=== PATIENT | male | born 1960 | race Caucasian/White ===

== ENCOUNTER 2017-09-25 13:52 | Observation (INO) ==
[2017-09-25 14:25] LABS: Bilirubin,Urine Negative (Negative); Blood,Urine Negative (Negative); Clarity,Urine Clear (Clear); Color,Urine Yellow (Yellow); Glucose,Urine (UA) Normal (Normal); Ketones,Urine Negative (Negative); Leukocyte Esterase,Urine Negative (Negative); Nitrite,Urine Negative (Negative); PH,Urine 6.5 pH Units (5.0-8.0); Protein,Urine Negative (Neg-Trace); Specific Gravity,Urine 1.013 (1.010-1.025); Urobilinogen,Urine Normal (Normal)
--- NOTE | 2017-09-25 14:29 | Emergency Department Note ---
Disposition Clinical Impression: CHF (congestive heart failure) Disposition: Admitted As Inpatient Condition: Good Referrals: NONE,PCP [Primary Care Provider] - Forms: ED Satisfaction Letter, Work/School Release Time of Disposition: 17:03 General Adult HPI - General Chief complaint: ED General Medical Stated complaint: Leg swelling Time Seen by Provider: 09/25/17 14:04 Source: patient Mode of arrival: ambulatory Limitations: no limitations Nursing Notes Reviewed: Yes Vital Signs Reviewed: Yes - History of Present Illness HPI Narrative: Patient presents to the ED with a 3 week, but worse within the last week history of bilateral lower extremities with left greater than right swelling, orthopnea, exertional dyspnea. Denies chest pain. Also complaining of abdominal distention, pain, nausea or vomiting. No melena, hematochezia, hematemesis. Nonproductive cough. No previous history of CHF. States he has gained about 20 pounds in the last few weeks. Previous history of DVT, PE or malignancy. Pain Scale: 6 - Related Data Home Medications Medication Instructions Recorded Confirmed Amitriptyline HCl 04/19/17 Diazepam 04/19/17 Hydrochlorothiazide 04/19/17 Lotrel 5-20 mg Capsule 04/19/17 Oxycodone HCl 04/19/17 Previous Rx's Medication Instructions Recorded Peg 3350/Na Sulf,Bicarb,Cl/KCl 4,000 ml PO ONCE #1 / 08/26/16 [Golytely Solution] Simethicone [Gas-X] 80 mg PO TID #20 tab.chew 08/26/16 Azelastine 0.1% Nasal [place] 1 spray IN BID #30 mls 04/19/17 [Astelin] Cephalexin [Keflex] 1 g PO BID #40 capsule 04/19/17 Sulfamethoxazole/Trimeth DS 1 each PO BID #20 tablet 07/05/17 [Bactrim DS] Allergies Allergy/AdvReac Type Severity Reaction Status Date / Time Tetracyclines Allergy Hives Verified 08/25/16 21:52 All systems ED: reviewed and negative except as stated. Constitutional: Denies: fever Eyes: Denies: vision change Cardiovascular: Reports: dyspnea on exertion, orthopnea, edema, paroxysmal nocturnal dyspnea. Denies: chest pain, syncope Respiratory: Reports: cough, dyspnea. Denies: sputum production Gastrointestinal: Reports: abdominal pain, nausea. Denies: vomiting Musculoskeletal: Denies: back pain Integumentary: Denies: rash Past Medical History - Past Medical History Attestation: Yes The following information was validated with the patient. Source: patient Medical history: Reports: fibromyalgia, glaucoma, hypertension, other Surgical history: Reports: appendectomy, other (T&A; Right eye: ran tree root into eye) Psychiatric history: Reports: anxiety - Social History Smoking Status: Former smoker Smokeless Tobacco Status: No Alcohol use: Reports: none Drug use: Reports: none Physical Exam - General Limitations: no limitations General appearance: alert, in no apparent distress - Head Head exam: atraumatic, normocephalic, normal inspection - Eye Eye exam: Present: normal appearance, PERRL, EOMI - ENT ENT exam: normal exam, normal oropharynx, mucous membranes moist - Neck Neck exam: Present: normal inspection, full ROM, trachea midline - Chest Chest inspection: Present: normal inspection, symmetric chest wall rise - Respiratory Respiratory exam: Present: other (Trace rales bilateral bases). Absent: normal lung sounds bilaterally, accessory muscle use - Cardiovascular Cardiovascular exam: Present: regular rate, normal rhythm, normal heart sounds - Abdominal Exam Abdominal exam: Present: soft, distention, other (Patient does have an area of ecchymosis above his umbilicus. No crepitus, denies injury or injection). Absent: guarding, rebound Abdominal tenderness: Present: diffuse, mild - Extremities Exam Extremities exam: Present: pedal edema (2-3+ pitting edema with left greater than right) - Neurological Exam Neurological exam: Present: alert, oriented X3 - Psychiatric Psychiatric exam: Present: normal affect, normal mood - Skin Skin exam: Present: warm, dry, intact, normal color Course Course Narrative: Patient presenting with likely new onset CHF. We will get labs and likely admit - Reevaluation(s) Reevaluation #1: Patient had some pulmonary vascular congestion, but no PE. We will admit for CHF. Patient family agreeable. We will also give Lasix. Vital Signs Temperature 98.2 F 09/25/17 13:57 Pulse Rate 66 09/25/17 13:57 Respiratory Rate 16 09/25/17 13:57 Blood Pressure 135/84 09/25/17 13:57 O2 Sat by Pulse Oximetry 96 09/25/17 13:57 Temperature 98.2 F 09/25/17 13:57 Pulse Rate 62 09/25/17 16:35 Respiratory Rate 20 09/25/17 16:35 Blood Pressure 145/99 09/25/17 16:35 O2 Sat by Pulse Oximetry 100 09/25/17 16:35 Oxygen Delivery Oxygen Delivery Room Air Medical Decision Making - Medical Records Medical records reviewed: Yes I reviewed the patient's medical records. - Lab Data Lab results reviewed: Yes I reviewed the patient's lab results. Result diagrams: 09/25/17 14:20 09/25/17 14:20 Lab Results 09/25/17 09/25/17 09/25/17 Range/Units 14:16 14:20 14:20 WBC 5.0 (4.3-11.1) K/mcL RBC 3.88 L (4.19-5.50) M/mcL Hgb 13.6 (12.9-16.9) g/dL Hct 39.9 (37.5-50.1) % MCV 102.8 H (83.0-100.0) fL MCH 35.1 H (28.0-33.3) pg MCHC 34.1 (31.6-35.5) g/dL RDW 13.3 (11.5-14.5) % Plt Count 235 (140-400) K/mcL MPV 9.6 (9.4-12.4) fL Immature Gran % 0.4 (0-4) % Seg Neutrophils % 49.3 % Lymphocytes % 39.3 % Monocytes % 9.0 % Eosinophils % 1.6 % Basophils % 0.4 % Neutrophils # 2.5 (1.6-8.9) K/mcL Lymphocytes # 2.0 (0.6-4.6) K/mcL Monocytes # 0.5 (0.0-1.3) K/mcL Eosinophils # 0.1 (0.0-0.6) K/mcL Basophils # 0.0 (0.0-0.2) K/mcL PT (9.4-12.1) Seconds INR APTT (26.0-36.0) Seconds Sodium 139 (136-145) mEq/L Potassium 4.1 (3.5-4.5) mEq/L Chloride 105 (98-109) mEq/L Carbon Dioxide 26 (19-29) mEq/L BUN 17 (8-26) mg/dL Creatinine 0.93 (0.72-1.25) mg/dL Est GFR ( Amer) > 60 (> 60) Est GFR (Non-Af Amer) > 60 (> 60) BUN/Creatinine Ratio 18 (6-26) Glucose 101 H (70-99) mg/dL Calculated Osmolality 290 (280-300) Lactic Acid (0.5-2.2) mmol/L Calcium 9.5 (8.6-10.8) mg/dL Total Bilirubin 0.4 (0.2-1.2) mg/dL Direct Bilirubin 0.2 (0.0-0.5) mg/dL Indirect Bilirubin 0.2 (0.0-1.2) mg/dL AST 29 (5-34) Units/L ALT 33 (0-55) Units/L Alkaline Phosphatase 91 (38-126) Units/L Troponin I (0-0.03) ng/mL B-Natriuretic Peptide (0-100) pg/mL Serum Total Protein 7.5 (6.0-8.3) g/dL Albumin 3.7 (3.5-5.0) g/dL Globulin 3.8 H (2.4-3.5) g/dL Albumin/Globulin Ratio 1.0 L (1.1-2.2) Lipase < 10 (8-78) Units/L Urine Color Yellow (Yellow) Urine Clarity Clear (Clear) Urine pH 6.5 (5.0-8.0) pH Units Ur Specific [place] 1.013 (1.010-1.025) Urine Protein Negative (Neg-Trace) mg/dL Urine Glucose (UA) Normal (Normal) mg/dL Urine Ketones Negative (Negative) mg/dL Urine Blood Negative (Negative) Urine Nitrite Negative (Negative) Urine Bilirubin Negative (Negative) Urine Urobilinogen Normal (Normal) mg/dL Ur Leukocyte Esterase Negative (Negative) Ur Culture Indicated? NO (NO) 09/25/17 09/25/17 09/25/17 Range/Units 14:20 14:20 14:20 WBC (4.3-11.1) K/mcL RBC (4.19-5.50) M/mcL Hgb (12.9-16.9) g/dL Hct (37.5-50.1) % MCV (83.0-100.0) fL MCH (28.0-33.3) pg MCHC (31.6-35.5) g/dL RDW (11.5-14.5) % Plt Count (140-400) K/mcL MPV (9.4-12.4) fL Immature Gran % (0-4) % Seg Neutrophils % % Lymphocytes % % Monocytes % % Eosinophils % % Basophils % % Neutrophils # (1.6-8.9) K/mcL Lymphocytes # (0.6-4.6) K/mcL Monocytes # (0.0-1.3) K/mcL Eosinophils # (0.0-0.6) K/mcL Basophils # (0.0-0.2) K/mcL PT (9.4-12.1) Seconds INR APTT (26.0-36.0) Seconds Sodium (136-145) mEq/L Potassium (3.5-4.5) mEq/L Chloride (98-109) mEq/L Carbon Dioxide (19-29) mEq/L BUN (8-26) mg/dL Creatinine (0.72-1.25) mg/dL Est GFR ( Amer) (> 60) Est GFR (Non-Af Amer) (> 60) BUN/Creatinine Ratio (6-26) Glucose (70-99) mg/dL Calculated Osmolality (280-300) Lactic Acid 1.1 (0.5-2.2) mmol/L Calcium (8.6-10.8) mg/dL Total Bilirubin (0.2-1.2) mg/dL Direct Bilirubin (0.0-0.5) mg/dL Indirect Bilirubin (0.0-1.2) mg/dL AST (5-34) Units/L ALT (0-55) Units/L Alkaline Phosphatase (38-126) Units/L Troponin I 0.00 (0-0.03) ng/mL B-Natriuretic Peptide 123 H (0-100) pg/mL Serum Total Protein (6.0-8.3) g/dL Albumin (3.5-5.0) g/dL Globulin (2.4-3.5) g/dL Albumin/Globulin Ratio (1.1-2.2) Lipase (8-78) Units/L Urine Color (Yellow) Urine Clarity (Clear) Urine pH (5.0-8.0) pH Units Ur Specific [place] (1.010-1.025) Urine Protein (Neg-Trace) mg/dL Urine Glucose (UA) (Normal) mg/dL Urine Ketones (Negative) mg/dL Urine Blood (Negative) Urine Nitrite (Negative) Urine Bilirubin (Negative) Urine Urobilinogen (Normal) mg/dL Ur Leukocyte Esterase (Negative) Ur Culture Indicated? (NO) 09/25/17 Range/Units 14:20 WBC (4.3-11.1) K/mcL RBC (4.19-5.50) M/mcL Hgb (12.9-16.9) g/dL Hct (37.5-50.1) % MCV (83.0-100.0) fL MCH (28.0-33.3) pg MCHC (31.6-35.5) g/dL RDW (11.5-14.5) % Plt Count (140-400) K/mcL MPV (9.4-12.4) fL Immature Gran % (0-4) % Seg Neutrophils % % Lymphocytes % % Monocytes % % Eosinophils % % Basophils % % Neutrophils # (1.6-8.9) K/mcL Lymphocytes # (0.6-4.6) K/mcL Monocytes # (0.0-1.3) K/mcL Eosinophils # (0.0-0.6) K/mcL Basophils # (0.0-0.2) K/mcL PT 10.1 (9.4-12.1) Seconds INR 0.9 APTT 31.6 (26.0-36.0) Seconds Sodium (136-145) mEq/L Potassium (3.5-4.5) mEq/L Chloride (98-109) mEq/L Carbon Dioxide (19-29) mEq/L BUN (8-26) mg/dL Creatinine (0.72-1.25) mg/dL Est GFR ( Amer) (> 60) Est GFR (Non-Af Amer) (> 60) BUN/Creatinine Ratio (6-26) Glucose (70-99) mg/dL Calculated Osmolality (280-300) Lactic Acid (0.5-2.2) mmol/L Calcium (8.6-10.8) mg/dL Total Bilirubin (0.2-1.2) mg/dL Direct Bilirubin (0.0-0.5) mg/dL Indirect Bilirubin (0.0-1.2) mg/dL AST (5-34) Units/L ALT (0-55) Units/L Alkaline Phosphatase (38-126) Units/L Troponin I (0-0.03) ng/mL B-Natriuretic Peptide (0-100) pg/mL Serum Total Protein (6.0-8.3) g/dL Albumin (3.5-5.0) g/dL Globulin (2.4-3.5) g/dL Albumin/Globulin Ratio (1.1-2.2) Lipase (8-78) Units/L Urine Color (Yellow) Urine Clarity (Clear) Urine pH (5.0-8.0) pH Units Ur Specific [place] (1.010-1.025) Urine Protein (Neg-Trace) mg/dL Urine Glucose (UA) (Normal) mg/dL Urine Ketones (Negative) mg/dL Urine Blood (Negative) Urine Nitrite (Negative) Urine Bilirubin (Negative) Urine Urobilinogen (Normal) mg/dL Ur Leukocyte Esterase (Negative) Ur Culture Indicated? (NO) - Radiology Data Radiology results reviewed: Yes I reviewed the patient's radiology results. - EKG Data EKG #1 EKG attestation: Yes I reviewed and interpreted this EKG. EKG results narrative: Sinus rhythm, rate 64, para 156, QRS 104, QTC 381, left axis deviation, no acute ischemic changes.
[2017-09-25 14:38] LABS: Basophils % 0.4 %; Eosinophils # 0.1 K/mcL (0.0-0.6); Eosinophils % 1.6 %; Hematocrit 39.9 % (37.5-50.1); Hemoglobin 13.6 g/dL (12.9-16.9); Immature Granulocytes % 0.4 % (0-4); Lymphocytes % 39.3 %; Mean Corpuscular HGB Conc 34.1 g/dL (31.6-35.5); Mean Corpuscular Hemoglobin 35.1 pg (28.0-33.3); Mean Corpuscular Volume 102.8 fL (83.0-100.0); Mean Platelet Volume 9.6 fL (9.4-12.4); Monocytes # 0.5 K/mcL (0.0-1.3); Neutrophils # 2.5 K/mcL (1.6-8.9); Platelet Count 235 K/mcL (140-400); Red Blood Count 3.88 M/mcL (4.19-5.50); Red Cell Distribution Width 13.3 % (11.5-14.5); Segmented Neutrophils % 49.3 %
[2017-09-25 14:42] LABS: INR 0.9; Prothrombin Time 10.1 Seconds (9.4-12.1)
[2017-09-25 14:45] LABS: Activated Partial Thrombo Time 31.6 Seconds (26.0-36.0)
[2017-09-25 14:52] LABS: Alanine Aminotransferase 33 Units/L (0-55); Albumin 3.7 g/dL (3.5-5.0); Alkaline Phosphatase 91 Units/L (38-126); Aspartate Amino Transferase 29 Units/L (5-34); BUN/Creatinine Ratio 18 (6-26); Bilirubin,Direct 0.2 mg/dL (0.0-0.5); Bilirubin,Indirect 0.2 mg/dL (0.0-1.2); Bilirubin,Total 0.4 mg/dL (0.2-1.2); Blood Urea Nitrogen 17 mg/dL (8-26); Calcium 9.5 mg/dL (8.6-10.8); Carbon Dioxide 26 mEq/L (19-29); Chloride 105 mEq/L (98-109); Globulin 3.8 g/dL (2.4-3.5); Glucose 101 mg/dL (70-99); Osmolality,Calculated 290 (280-300); Potassium 4.1 mEq/L (3.5-4.5); Sodium 139 mEq/L (136-145); Total Protein 7.5 g/dL (6.0-8.3); eGFR For African Americans > 60 (> 60); eGFR For Non-African Americans > 60 (> 60)
[2017-09-25 14:53] LABS: Lipase < 10 Units/L (8-78)
--- NOTE | 2017-09-25 15:17 | Emergency Department Note ---
START Narrative - START START: I examined this patient and my medical decision-making was reviewed with the Resident Physician. I agree with the documented findings, disposition and treatment plan as described except to the extent set forth below. 57 year old male who is complaining of abodminal and bilatera leg swelling and feels lik ehe has gained about 20 pounds over the past week and now has shortness of breath and states he stopped smoking about 2 months ago. Patient denies hemopytosis or chest pain. At rest he is aobut 89-90% on RA. WE will do cardiopulmonary workup on patinet and CT scan chest/abp for evlautiion. his BNP is 132 and no CHF on CXr.
[2017-09-25] MEDS ORDERED: Ondansetron 4 MG/2 ML VIAL IVP PRN (17:01)
[2017-09-25] MEDS ORDERED: Acetaminophen 325 MG TABLET PO PRN (17:01)
[2017-09-25] MEDS ORDERED: *HR* Promethazine 25 MG/ML VIAL IVP PRN (17:01)
[2017-09-25] MEDS ORDERED: *HR* Morphine 2 MG/ML SYRINGE IVP PRN (17:01)
[2017-09-25] MEDS ORDERED: Furosemide 40 MG/4 ML VIAL IVP ONE (17:01)
[2017-09-25] MEDS ORDERED: *HR* HYDROcodone/Acet 5/325 mg TABLET PO PRN (17:01)
[2017-09-25] MEDS ORDERED: Naloxone 0.4 MG/ML INJ IVP PRN (17:01)
--- NOTE | 2017-09-25 17:41 | Internal Med History&Physical ---
Date of Encounter: 09/25/17 Time of Encounter: 17:39 Assessment and Plan (1) CHF (congestive heart failure) Current visit: Yes Status: Acute Will place the pt into Tele for observation Pt symptoms are consistnet with new onset CHF No previous 2 D Ehco to confirm Systolic Vs Diastoic.. suspecting diastolic will put him on clinical research monitor Reviewed EKG my self - NSR, VR -64, NO ST T changes Reviewed CXR myself - No infiltrates, poor inspiratory effort. check serial troponin check FLP in AM start him on ASA, low dose B loretta Star him on aggressive IV diuresis with Lasix 40mg TID 2 D Echo in AM Close monitoring electrolytes Qualifiers: Qualified Code(s): I50.9 - Heart failure, unspecified (2) HTN (hypertension) Current visit: Yes Status: Acute Reusmed home meds Will add low dose Metoprolol Also will place him on hydralazine IV PRN Qualifiers: Qualified Code(s): I10 - Essential (primary) hypertension (3) Morbid obesity with BMI of 40.0-44.9, adult Current visit: Yes Status: Acute Counseled to loose weight (4) Bilateral leg edema Current visit: Yes Status: Acute Due to CHF exacerbation (5) Esophagitis Current visit: Yes Status: Chronic Reviewed CT of Abd showing possible chronic esophagitis will start him on PPI educate the pt about prevention of GERD Internal Medicine - H&P: HPI Chief complaint: Shortness of breath and b/l LE swelling Admitted From: Emergency Dept Plans for Post Hospital Care: Home History of present illness: Mr. Qureshi is a 57 year old male with known PMH of HTN, Morbid obesity, Chronic low back pain and narcotic dependent, who presented to ER c/p progressively worsening SOB, Orthopnea and ALEJANDRO from last one week. Also noticed worsening swelling / edema in both legs around ankle area. He denied any CP, however feels some chest tightness when he lies flat. He denied any cough, recent travel history. Past Med Surg Social Fam HX - Past Medical History Medical history: fibromyalgia, glaucoma, hypertension, other Psychiatric history: anxiety - Past Surgical History Surgical History: appendectomy, other (T&A; Right eye: ran tree root into eye) - Social History Smoking Status: Former smoker Smokeless Tobacco Status: No Alcohol use: none Drug use: none - Family History Grandmother Hx Family Cardiac Disorders: Yes (CHF) Father Hx Family Cardiac Disorders: Yes (SD) Internal Medicine - H&P: Meds Peg 3350/Na Sulf,Bicarb,Cl/KCl [Golytely Solution] 4,000 ml PO ONCE #1 / [Rx] Simethicone [Gas-X] 80 mg PO TID #20 tab.chew 08/26/16 [Rx] Amitriptyline HCl 04/19/17 [History] Azelastine 0.1% Nasal [place] [Astelin] 1 spray IN BID #30 mls 04/19/17 [Rx] Cephalexin [Keflex] 1 g PO BID #40 capsule 04/19/17 [Rx] Diazepam 04/19/17 [History] Hydrochlorothiazide 04/19/17 [History] Lotrel 5-20 mg Capsule 04/19/17 [History] Oxycodone HCl 04/19/17 [History] Sulfamethoxazole/Trimeth DS [Bactrim DS] 1 each PO BID #20 tablet 07/05/17 [Rx] 3 Allergy/AdvReac Type Severity Reaction Status Date / Time Tetracyclines Allergy Hives Verified 08/25/16 21:52 All Systems PM: A 10-system review of systems was performed and is negative for pertinent findings except as documented above in the HPI. Review of systems: All systems reviewed everything is benign except the systems and symptoms I mentioned in HPI - Constitutional Vitals: Temp Pulse Resp BP Pulse Ox 98.2 F 62 20 145/99 100 09/25/17 13:57 09/25/17 16:35 09/25/17 16:35 09/25/17 16:35 09/25/17 16:35 General appearance: Present: A&O X 3, morbidly obese, no acute distress, answers questions appropriately - Head Head exam: Present: atraumatic, normal inspection - Respiratory Respiratory exam: Present: decreased breath sounds, rales (mild rales at basal regions). Absent: respiratory distress, rhonchi, wheezes - Cardiovascular Cardiovascular exam: Present: RRR, +S1, +S2. Absent: systolic murmur, tachycardia - GI/Abdominal GI/Abdominal exam: Present: distended, normal bowel sounds, soft. Absent: rebound, rigid, tenderness - Extremities Exam Extremities exam: Present: pedal edema (2+). Absent: calf tenderness, tenderness - Back Exam Back exam: Absent: CVA tenderness (L), CVA tenderness (R) - Neurological Exam Neurological exam: Present: alert, oriented X3 - Psychiatric Psychiatric exam: Present: normal affect, normal mood Internal Med - H&P Results - Labs CBC & Chem 7: 09/25/17 14:20 09/25/17 14:20
[2017-09-25] MEDS: Aspirin Enteric Coated 81 MG Tablet PO SCH (20:38)
[2017-09-25] MEDS: Gabapentin 400 MG CAPSULE PO SCH (21:10)
[2017-09-25] MEDS: *HR* OxyCODONE/APAP 7.5/325 TABLET PO PRN (21:10)
[2017-09-25] MEDS: Furosemide 40 MG/4 ML VIAL IVP SCH (22:17)
[2017-09-26 04:03] LABS: Basophils % 0.6 %; Eosinophils # 0.1 K/mcL (0.0-0.6); Hematocrit 41.3 % (37.5-50.1); Immature Granulocytes % 0.4 % (0-4); Immature Platelets 2.7 % (1.1-6.1); Lymphocytes # 2.1 K/mcL (0.6-4.6); Mean Corpuscular HGB Conc 33.9 g/dL (31.6-35.5); Mean Corpuscular Hemoglobin 34.7 pg (28.0-33.3); Mean Corpuscular Volume 102.2 fL (83.0-100.0); Monocytes # 0.5 K/mcL (0.0-1.3); Monocytes % 9.5 %; Neutrophils # 2.4 K/mcL (1.6-8.9); Platelet Count 235 K/mcL (140-400); Red Blood Count 4.04 M/mcL (4.19-5.50); Red Cell Distribution Width 13.4 % (11.5-14.5); Segmented Neutrophils % 46.5 %
[2017-09-26 04:23] LABS: Alanine Aminotransferase 32 Units/L (0-55); Albumin 3.8 g/dL (3.5-5.0); Albumin/Globulin Ratio 1.1 (1.1-2.2); Alkaline Phosphatase 89 Units/L (38-126); Aspartate Amino Transferase 24 Units/L (5-34); BUN/Creatinine Ratio 15 (6-26); Bilirubin,Total 0.6 mg/dL (0.2-1.2); Blood Urea Nitrogen 16 mg/dL (8-26); Calcium 9.9 mg/dL (8.6-10.8); Carbon Dioxide 30 mEq/L (19-29); Chloride 99 mEq/L (98-109); Chol/HDL Ratio 3.6 (0-4.9); Cholesterol 169 mg/dL (< 200); Globulin 3.6 g/dL (2.4-3.5); Glucose 92 mg/dL (70-99); HDL Cholesterol 47 mg/dL (40-59); LDL Cholesterol,Calculated 92 mg/dL (0-99); Magnesium 2.1 mg/dL (1.6-2.6); Osmolality,Calculated 289 (280-300); Potassium 3.6 mEq/L (3.5-4.5); Sodium 139 mEq/L (136-145); Total Protein 7.4 g/dL (6.0-8.3); Triglycerides 152 mg/dL (< 150); eGFR For African Americans > 60 (> 60); eGFR For Non-African Americans > 60 (> 60)
[2017-09-26] MEDS: Furosemide 40 MG/4 ML VIAL IVP SCH ×3 (05:55→20:59)
[2017-09-26] MEDS: Gabapentin 400 MG CAPSULE PO SCH ×3 (09:27→20:58)
[2017-09-26] MEDS: Aspirin Enteric Coated 81 MG Tablet PO SCH (09:27)
[2017-09-26] MEDS: *HR* OxyCODONE/APAP 7.5/325 TABLET PO PRN ×3 (09:30→20:58)
--- NOTE | 2017-09-26 14:03 | Internal Med Progress Note ---
Date of Encounter: 09/26/17 Time of Encounter: 14:01 - Assessment and plan (1) CHF (congestive heart failure) Current Visit: Yes Status: Acute Assessment and plan: Pt symptoms are consistnet with new onset CHF No previous 2 D Ehco to confirm Systolic Vs Diastoic.. suspecting diastolic Waiting on 2 D Echo symptoms slowly improving cont aggressive IV diuresis with Lasix 40mg TID cont ASA, Metoprolol Qualifiers: Qualified Code(s): I50.9 - Heart failure, unspecified (2) HTN (hypertension) Current Visit: Yes Status: Acute Assessment and plan: stable and well controlled with current regimen Qualifiers: Qualified Code(s): I10 - Essential (primary) hypertension (3) Morbid obesity with BMI of 40.0-44.9, adult Current Visit: Yes Status: Acute Assessment and plan: counseled to loose weight (4) Bilateral leg edema Current Visit: Yes Status: Acute Assessment and plan: Due to CHF exacerbation improving (5) Esophagitis Current Visit: Yes Status: Chronic Assessment and plan: Cont on PPI may need out pt EGD - Subjective Interval history: Mr. Qureshi is a 57 year old male with known PMH of HTN, Morbid obesity, Chronic low back pain and narcotic dependent, who presented to ER c/p progressively worsening SOB, Orthopnea and ALEJANDRO from last one week. Also noticed worsening swelling / edema in both legs around ankle area. he was admitted in the hospital for acute CHF exacerbation and started him IV lasix. He stated he is feeling little better today. Still has 2+ pitting edema in both ankle. Denied any CP. SOB is little better today - Constitutional Vitals: Temp Pulse Resp BP Pulse Ox 98.4 F 70 20 146/76 94 09/26/17 11:10 09/26/17 11:10 09/26/17 11:10 09/26/17 11:10 09/26/17 11:10 General appearance: Present: A&O X 3, morbidly obese, no acute distress, answers questions appropriately - Head Head exam: Present: atraumatic, normal inspection - Neck Neck exam general surgery: Present: supple - Respiratory Respiratory exam: Present: decreased breath sounds. Absent: rales, respiratory distress, rhonchi, wheezes - Cardiovascular Cardiovascular exam: Present: RRR, +S1, +S2. Absent: diastolic murmur, gallop, rubs, systolic murmur - GI/Abdominal GI/Abdominal exam: Present: distended, normal bowel sounds, soft. Absent: rebound, rigid, tenderness - Extremities Exam Extremities exam: Present: pedal edema (2+). Absent: calf tenderness, tenderness - Back Exam Back exam: Absent: CVA tenderness (L), CVA tenderness (R) - Psychiatric Psychiatric exam: Present: normal affect, normal mood Internal Medicine: Result - Labs CBC & Chem 7: 09/26/17 03:17 09/26/17 03:17 Labs: Short CBC 09/26/17 Range/Units 03:17 WBC 5.1 (4.3-11.1) K/mcL Hgb 14.0 (12.9-16.9) g/dL Hct 41.3 (37.5-50.1) % Plt Count 235 (140-400) K/mcL Neutrophils # 2.4 (1.6-8.9) K/mcL BMP 09/26/17 03:17 Sodium 139 Potassium 3.6 Chloride 99 Carbon Dioxide 30 H BUN 16 Creatinine 1.08 Glucose 92 Calcium 9.9 Cardiac Enzymes 09/25/17 09/26/17 Range/Units 21:38 03:17 Troponin I 0.00 0.00 (0-0.03) ng/mL Liver Function 09/26/17 Range/Units 03:17 Total Bilirubin 0.6 (0.2-1.2) mg/dL AST 24 (5-34) Units/L ALT 32 (0-55) Units/L Alkaline Phosphatase 89 (38-126) Units/L Albumin 3.8 (3.5-5.0) g/dL - ABG Interpretation ABG results: PT/INR, D-dimer PT 10.1 Seconds (9.4-12.1) 09/25/17 14:20 Consult Discharge Plan - Plan Referrals: NONE,PCP [Primary Care Provider] -
[2017-09-26] MEDS: Nicotine 14 MG PATCH.TD24 TD SCH (17:10)
--- NOTE | 2017-09-26 17:47 | Electrocardiograph Report ---
[place] [id number] Test Date: 2017-09-25 Pat Name: Addy Qureshi Department: 104 Room: 3B43 Gender: M Shank Cutter: : 1960 Requested By: Magnus Dee Order Number: [id number] Reading MD: Mita Stokes Measurements Intervals [place] Rate: 64 P: 51 VT: 156 QRS: -2 QRSD: 104 T: 13 QT: 371 QTc: 381 Interpretive Statements SINUS RHYTHM Electronically Signed On 09-26-2017 17:45:45 EST by Mita Stokes
[2017-09-27 05:15] LABS: BUN/Creatinine Ratio 21 (6-26); Blood Urea Nitrogen 23 mg/dL (8-26); Calcium 9.4 mg/dL (8.6-10.8); Carbon Dioxide 29 mEq/L (19-29); Chloride 99 mEq/L (98-109); Glucose 109 mg/dL (70-99); Magnesium 2.1 mg/dL (1.6-2.6); Osmolality,Calculated 290 (280-300); Potassium 3.4 mEq/L (3.5-4.5); Sodium 138 mEq/L (136-145); eGFR For African Americans > 60 (> 60); eGFR For Non-African Americans > 60 (> 60)
[2017-09-27] MEDS: *HR* OxyCODONE/APAP 7.5/325 TABLET PO PRN (05:43)
[2017-09-27] MEDS: Furosemide 40 MG/4 ML VIAL IVP SCH (05:43)
[2017-09-27] MEDS: Aspirin Enteric Coated 81 MG Tablet PO SCH (09:49)
[2017-09-27] MEDS: Gabapentin 400 MG CAPSULE PO SCH (09:49)
[2017-09-27] MEDS: Nicotine 14 MG PATCH.TD24 TD SCH (09:49)
[2017-09-27 11:21] VITALS: BP 129/80
--- NOTE | 2017-09-27 11:54 | Discharge Summary ---
Date of Encounter: 09/27/17 Time of Encounter: 11:50 - Discharge Diagnosis (1) CHF (congestive heart failure) Priority: Primary Status: Acute Qualifiers: Qualified Code(s): I50.9 - Heart failure, unspecified (2) HTN (hypertension) Priority: Secondary Status: Acute Qualifiers: Qualified Code(s): I10 - Essential (primary) hypertension (3) Morbid obesity with BMI of 40.0-44.9, adult Priority: Secondary Status: Acute (4) Bilateral leg edema Priority: Primary Status: Acute (5) Esophagitis Priority: Secondary Status: Chronic - Discharge Medications Prescriptions: Aspirin Enteric Coated [Aspirin EC] 81 mg PO DAILY #30 tablet. Furosemide [Lasix] 40 mg PO BID #40 tablet Metoprolol [Lopressor] 25 mg PO BID #60 tablet Nicotine Patch [Nicoderm] 14 mg TD DAILY #30 patch.td24 Potassium Chloride [K-Tab ER] 20 meq PO DAILY #40 tablet.er Home Medications: Fluticasone Propionate Nasal [Flonase] 2 spr NS BID PRN 09/25/17 [History] Oxycodone HCl/Acetaminophen [Percocet 7.5-325 mg Tablet] 1 each PO Q6H PRN 09/25 [History] Simethicone [Gas-X] 80 mg PO TID PRN 09/25/17 [History] Amlodipine Besylate/Benazepril [Lotrel 5-20 mg Capsule] 1 cap PO DAILY 09/26/17 [History] Gabapentin [Neurontin] 300 mg PO TID 09/26/17 [History] Nicotine Patch [Nicoderm] 14 mg TD DAILY 09/26/17 [History] Aspirin Enteric Coated [Aspirin EC] 81 mg PO DAILY #30 tablet. 09/27/17 [Rx] Furosemide [Lasix] 40 mg PO BID #40 tablet 09/27/17 [Rx] Metoprolol [Lopressor] 25 mg PO BID #60 tablet 09/27/17 [Rx] Nicotine Patch [Nicoderm] 14 mg TD DAILY #30 patch.td24 09/27/17 [Rx] Omeprazole [PriLOSEC] 20 mg PO DAILY #30 cap 09/27/17 [Rx] Potassium Chloride [K-Tab ER] 20 meq PO DAILY #40 tablet.er 09/27/17 [Rx] Allergies/Adverse Reactions: 3 Allergy/AdvReac Type Severity Reaction Status Date / Time Tetracyclines Allergy Hives Verified 09/26/17 12:57 Date of admission: 09/25/17 17:24 Primary care physician: PCP NONE - Patient Status Disposition: Home, Self-Care Condition: Good Overall status at discharge: patient is back to baseline - Discharge Instructions Follow Up With: NONE,PCP [Primary Care Provider] - Additional Instructions: Need to f/u with PCP in one week Need to f/u with GI Dr. Crowell in 3-4 weeks for your esophagitis - Diet and Activity Activity: increase activity as tolerated Diet: low salt diet Hospital course: Mr. Qureshi is a 57 year old male with known PMH of HTN, Morbid obesity, Chronic low back pain and narcotic dependent, who presented to ER c/p progressively worsening SOB, Orthopnea and ALEJANDRO from last one week. Also noticed worsening swelling / edema in both legs around ankle area. He denied any CP, however feels some chest tightness when he lies flat. He denied any cough, recent travel history. Pt was admitted in the hospital for new onset CHF exacerbation. He was started on aggresive IV diureiss with Lasix 40mg TID. He did loose 6kg weight and his b/l leg edema and SOB improved too. His 2 D Ehco showed normal LVEF 55%, mild diastolic dysfunction. Recommend to keep BP well controlled. Added Metoprolol to his current regimen. Also recommend to stop taking HCTZ since I am sending him home on Lasix. Recommend to loose weight. He does have chronic esophagitis on CT of abd , so started him on Prilosec here and recommend to f/u with GI for possible EGD at some point. - Time Spent with Patient Total time spent providing and/or coordinating discharge services: - Constitutional Vitals: Temp Pulse Resp BP Pulse Ox 97 F L 66 16 129/80 94 09/27/17 11:20 09/27/17 11:20 09/27/17 11:20 09/27/17 11:20 09/27/17 11:20 General appearance: Present: A&O X 3, morbidly obese, no acute distress, answers questions appropriately - Head Head exam: Present: atraumatic, normal inspection - Respiratory Respiratory exam: Present: decreased breath sounds. Absent: rales, respiratory distress, rhonchi, wheezes - Cardiovascular Cardiovascular exam: Present: RRR, +S1, +S2. Absent: systolic murmur, tachycardia - GI/Abdominal GI/Abdominal exam: Present: normal bowel sounds, soft. Absent: rebound, rigid, tenderness - Extremities Exam Extremities exam: Present: pedal edema (trace.. improved). Absent: calf tenderness, tenderness - Back Exam Back exam: Absent: CVA tenderness (L), CVA tenderness (R) - Psychiatric Psychiatric exam: Present: normal affect, normal mood - VTE Documentation of Mechanical Device: Graduated compression elastic hosiery
== END 2017-09-27 13:35 | disposition home or self-care (01) ==
LOC: 3BNU 13:52 → EMEROO 13:52 → 3BNU 17:55
PROVIDERS: ADMIT Family Medicine; ATTEND Registered Nurse

== ENCOUNTER 2017-12-30 09:38 | Observation (INO) ==
--- NOTE | 2017-12-30 09:53 | Emergency Department Note ---
START Narrative - START START: I examined this patient and my medical decision-making was reviewed with the emergency medicine resident. I agree with the documented findings, disposition and treatment plan as described except to the extent set forth below. Patient seen with emergency medicine resident Dr. ROBINA GOTTLIEB, Please see a copy of his note for details of the H&P, ED evaluation, management and disposition. I have independently evaluated the patient and confirmed appropriate portions of the history and physical exam. Briefly: 57-year-old male by private vehicle accompanied by his for shortness breath and increased swelling of his extremities. History of congestive heart failure. Has bibasilar rales and some mild difficulty in breathing but is not hypoxic. Patient did EKG chest x-ray screening labs IV Lasix. Admission possible. Disposition pending.
--- NOTE | 2017-12-30 09:56 | Emergency Department Note ---
Disposition Clinical Impression: Diastolic CHF, acute on chronic Disposition: Admitted As Inpatient Condition: Fair Time of Disposition: 14:12 SOB HPI - General Chief Complaint: ED Shortness of Breath/Dyspnea Stated Complaint: MEL,"fluid overload" Time Seen by Provider: 12/30/17 09:50 Source: patient Limitations: no limitations Nursing Notes Reviewed: Yes Vital Signs Reviewed: Yes - History of Present Illness 57-year-old male history of hypertension hyperlipidemia, presents with worsening shortness of breath, he also has a history of diastolic heart failure is noted increased swelling in his bilateral legs, he is to 10 chest tightness, denies chest pain at this time, but he has intermittent tightness when he is exertional. Is also trouble sleeping and laying flat. He wakes up struggling to breathe. He was transferred in by his Truck Despatcher Dr Stevens for worsening shortness of breath. Possible CHF exacerbation, requiring 40 twice a day of Lasix and not improving and symptomatic control. No history of DVTs, no recent recumbency prolonged travel recent surgeries hemoptysis or active malignancy. Pt Subjective Complaint: shortness of breath Onset (ago): week(s) Severity: moderate Improves with: nothing Worsens with: nothing Known history of: congestive heart failure Associated symptoms: Reports: orthopnea. Denies: chest pain, cough - Related Data Home Medications Medication Instructions Recorded Confirmed Amlodipine Besylate/Benazepril 1 tab PO DAILY 12/09/17 12/30/17 [Lotrel 5-20 mg Capsule] Furosemide [Lasix] 40 mg PO BID 12/09/17 12/30/17 Gabapentin [Neurontin] 400 mg PO TID 12/09/17 12/30/17 Metoprolol [Lopressor] 25 mg PO BID 12/09/17 12/30/17 Nicotine Patch [Nicoderm] 14 mg TD DAILY 12/09/17 12/30/17 Omeprazole [PriLOSEC] 20 mg PO DAILY 12/09/17 12/30/17 Oxycodone HCl/Acetaminophen 1 tab PO TID PRN 12/09/17 12/30/17 [Percocet 5-325 mg Tablet] Allergies Allergy/AdvReac Type Severity Reaction Status Date / Time Tetracyclines AdvReac See Verified 12/30/17 09:41 Comments All systems ED: reviewed and negative except as stated. Review of Systems: As Per HPI Constitutional: Denies: fever, chills Eyes: Denies: eye pain ENT ED: Denies: ear pain Cardiovascular: Reports: dyspnea on exertion, paroxysmal nocturnal dyspnea. Denies: chest pain, palpitations Respiratory: Reports: as per HPI, cough, dyspnea. Denies: wheezes, hemoptysis Gastrointestinal: Denies: abdominal pain, nausea, hematemesis Genitourinary: Denies: urgency, dysuria Musculoskeletal: Denies: back pain, neck pain Integumentary: Denies: rash Neurological: Denies: headache Past Medical History - Past Medical History Medical history: Reports: CHF, fibromyalgia, glaucoma, hypertension, other Surgical history: Reports: appendectomy, other Psychiatric history: Reports: anxiety - Social History Smoking Status: Never smoker Smokeless Tobacco Status: No Alcohol use: Reports: none Drug use: Reports: none Physical Exam Constitutional: 57-year-old male appears moderately dyspneic placed on oxygen satting 90%. Neck: normal inspection, neck is supple, no JVD Resp: normal chest inspection, CTA bilaterally, no resp distress, no wheezes/ rales/rhonchi CV: RRR, no murmurs/gallops/rubs, S1 and S2 heard Extremity: +2 bilateral radial and posterial tibial pulses, +2 pitting edema GI: normal inspection, Soft, NTND, no peritoneal signs, no palpable abdominal aortic aneurysm Back: normal inspection, no tenderness to palpation Neuro: A&O3, no gross motor or sensory deficits bilaterally MSK: normal inspection, bilateral UE and LE with normal ROM Skin: No rashes, skin warm, dry, intact - General Limitations: no limitations General appearance: alert, in no apparent distress Course Course Narrative: Patient has no evidence of Rales on exam but he does have +2 pitting the lower sternal edema, CBC BMP troponin and BNP were ordered, I also consult with the canteen operator Dr. Stevens, who stated that he wants the bustillos to have a heart catheter but he is unable to lay supine, seems concerned that he needs to be aggressively diureses, I did give him IV Lasix 40 mg. - Reevaluation(s) Reevaluation #1: His lab work was unremarkable, the patient had no imaging suggestive of heart failure, and normal BNP, however given signs and symptoms he has clinical evidence of heart failure with increased orthopnea and exertional dyspnea as well as signs of fluid overload with bilateral lower some edema. I spoke with the hospitalist the plan will be for admission to the hospital service with cardiology consult which was placed in the ER. Vital Signs Temperature 98.0 F 12/30/17 09:40 Pulse Rate 57 12/30/17 09:40 Respiratory Rate 20 12/30/17 09:40 Blood Pressure 134/91 12/30/17 09:40 O2 Sat by Pulse Oximetry 96 12/30/17 09:40 Temperature 97.6 F 12/30/17 12:35 Pulse Rate 52 12/30/17 12:35 Respiratory Rate 20 12/30/17 12:35 Blood Pressure 106/68 12/30/17 12:35 O2 Sat by Pulse Oximetry 97 12/30/17 12:35 Oxygen Delivery Oxygen Delivery Room Air Shortness of Breath/Dyspnea - Differential Diagnosis Likely: congestive heart failure, pneumonia - Medical Records Medical records reviewed: Yes I reviewed the patient's medical records. - Lab Data Lab results reviewed: Yes I reviewed the patient's lab results. Result diagrams: 12/30/17 10:09 12/30/17 10:09 Lab Results 12/30/17 12/30/17 12/30/17 Range/Units 10:09 10:09 10:09 WBC 6.0 (4.3-11.1) K/mcL RBC 4.25 (4.19-5.50) M/mcL Hgb 14.6 (12.9-16.9) g/dL Hct 42.7 (37.5-50.1) % MCV 100.5 H (83.0-100.0) fL MCH 34.4 H (28.0-33.3) pg MCHC 34.2 (31.6-35.5) g/dL RDW 13.0 (11.5-14.5) % Plt Count 203 (140-400) K/mcL MPV 9.8 (9.4-12.4) fL Immature Gran % 0.3 (0-4) % Seg Neutrophils % 69.1 % Lymphocytes % 23.9 % Monocytes % 6.3 % Eosinophils % 0.2 % Basophils % 0.2 % Neutrophils # 4.2 (1.6-8.9) K/mcL Lymphocytes # 1.4 (0.6-4.6) K/mcL Monocytes # 0.4 (0.0-1.3) K/mcL Eosinophils # 0.0 (0.0-0.6) K/mcL Basophils # 0.0 (0.0-0.2) K/mcL Sodium 137 (136-145) mEq/L Potassium 4.0 (3.5-5.1) mEq/L Chloride 104 (98-107) mEq/L Carbon Dioxide 24 (23-29) mEq/L BUN 13 (6-20) mg/dL Creatinine 0.80 (0.70-1.30) mg/dL Est GFR ( Amer) > 60 (> 60) Est GFR (Non-Af Amer) > 60 (> 60) BUN/Creatinine Ratio 16 (6-26) Glucose 117 H (70-105) mg/dL Calculated Osmolality 285 (280-300) Calcium 10.0 (8.6-10.3) mg/dL Troponin I < 0.03 (< 0.04) ng/mL B-Natriuretic Peptide (Less than 100) pg/mL 12/30/17 Range/Units 10:09 WBC (4.3-11.1) K/mcL RBC (4.19-5.50) M/mcL Hgb (12.9-16.9) g/dL Hct (37.5-50.1) % MCV (83.0-100.0) fL MCH (28.0-33.3) pg MCHC (31.6-35.5) g/dL RDW (11.5-14.5) % Plt Count (140-400) K/mcL MPV (9.4-12.4) fL Immature Gran % (0-4) % Seg Neutrophils % % Lymphocytes % % Monocytes % % Eosinophils % % Basophils % % Neutrophils # (1.6-8.9) K/mcL Lymphocytes # (0.6-4.6) K/mcL Monocytes # (0.0-1.3) K/mcL Eosinophils # (0.0-0.6) K/mcL Basophils # (0.0-0.2) K/mcL Sodium (136-145) mEq/L Potassium (3.5-5.1) mEq/L Chloride (98-107) mEq/L Carbon Dioxide (23-29) mEq/L BUN (6-20) mg/dL Creatinine (0.70-1.30) mg/dL Est GFR ( Amer) (> 60) Est GFR (Non-Af Amer) (> 60) BUN/Creatinine Ratio (6-26) Glucose (70-105) mg/dL Calculated Osmolality (280-300) Calcium (8.6-10.3) mg/dL Troponin I (< 0.04) ng/mL B-Natriuretic Peptide 75 (Less than 100) pg/mL - Radiology Data Radiology results reviewed: Yes I reviewed the patient's radiology results. Chest X-Ray 12/30/17 09:57 IMPRESSION: No acute cardiopulmonary process is identified radiographically. D/ / Carlos Cheatham MD / Carlos Cheatham MD Interpreting Provider: Carlos Cheatham MD - EKG Data EKG attestation: Yes I reviewed and interpreted this EKG. EKG shows normal: Reports: sinus rhythm Rate: Reports: normal (54 bpm PA 143 QRS 94 QTC 400 inverted T waves in V2 V3) Rhythm: Reports: NSR [place]imes/QRS: Reports: normal Interpretation: Reports: nonspecific ST-T wave changes - Core Measures AMI Core Measures Followed: Yes
[2017-12-30] MEDS ORDERED: Furosemide 40 MG/4 ML VIAL IVP ONE (09:57)
[2017-12-30] MEDS ORDERED: Aspirin 81 MG TAB.CHEW PO ONE (09:59)
[2017-12-30 10:17] LABS: Basophils % 0.2 %; Eosinophils % 0.2 %; Hematocrit 42.7 % (37.5-50.1); Hemoglobin 14.6 g/dL (12.9-16.9); Immature Granulocytes % 0.3 % (0-4); Lymphocytes # 1.4 K/mcL (0.6-4.6); Lymphocytes % 23.9 %; Mean Corpuscular HGB Conc 34.2 g/dL (31.6-35.5); Mean Corpuscular Hemoglobin 34.4 pg (28.0-33.3); Mean Corpuscular Volume 100.5 fL (83.0-100.0); Mean Platelet Volume 9.8 fL (9.4-12.4); Monocytes # 0.4 K/mcL (0.0-1.3); Monocytes % 6.3 %; Neutrophils # 4.2 K/mcL (1.6-8.9); Platelet Count 203 K/mcL (140-400); Red Blood Count 4.25 M/mcL (4.19-5.50); Segmented Neutrophils % 69.1 %
[2017-12-30 10:25] LABS: Carbon Dioxide 24 mEq/L (23-29); Chloride 104 mEq/L (98-107); Sodium 137 mEq/L (136-145)
[2017-12-30 10:30] LABS: BUN/Creatinine Ratio 16 (6-26); Blood Urea Nitrogen 13 mg/dL (6-20); Glucose 117 mg/dL (70-105); Osmolality,Calculated 285 (280-300); eGFR For African Americans > 60 (> 60); eGFR For Non-African Americans > 60 (> 60)
[2017-12-30] MEDS ORDERED: Ondansetron 4 MG/2 ML VIAL IVP PRN (11:21)
[2017-12-30] MEDS ORDERED: Naloxone 0.4 MG/ML INJ IVP PRN (11:21)
[2017-12-30] MEDS ORDERED: *HR* Promethazine 25 MG/ML VIAL IVP PRN (11:21)
[2017-12-30] MEDS ORDERED: Acetaminophen 325 MG TABLET PO PRN (11:21)
[2017-12-30] MEDS ORDERED: *HR* HYDROcodone/Acet 5/325 mg TABLET PO PRN (11:21)
[2017-12-30] MEDS ORDERED: Furosemide 40 MG/4 ML VIAL IVP SCH (11:30)
[2017-12-30] MEDS: Nicotine 14 MG PATCH.TD24 TD SCH (12:39)
[2017-12-30] MEDS: *HR* OxyCODONE/APAP 5/325 TABLET PO PRN ×2 (13:54→19:51)
--- NOTE | 2017-12-30 13:55 | Internal Med History&Physical ---
Date of Encounter: 12/30/17 Time of Encounter: 11:30 Assessment and Plan (1) Diastolic CHF, acute on chronic Current visit: Yes Status: Acute Will admit the pt into Tele He does have severe Diastolic CHF exacerbation Reviewed his Echo from 09/2017 showed preserved LVEF with Diastolic dysfunction however since his symptoms worsened even with lasix will repeat another 2 D Echo now Card consulted-- possible LHC In AM NPO after mid night IV Lasix 40 Q8hr Strict I & O cont hoe med ASA, Metoprolol and ACEI Trend on Trop.. so far negative trop (2) Acute respiratory distress Current visit: Yes Status: Acute Reviewed CXR - No acute infiltrates , no consolidations.. noticed inc vascular congestion Cont IV Lasix (3) Bilateral leg edema Current visit: No Status: Acute due to CHF exacerbation Cont Lasix (4) HTN (hypertension) Current visit: No Status: Acute stable with home meds Qualifiers: Hypertension type: essential hypertension Qualified Code(s): I10 - Essential (primary) hypertension (5) Morbid obesity with BMI of 40.0-44.9, adult Current visit: No Status: Acute (6) Low back pain Current visit: Yes Status: Chronic cont home pain meds PRN Qualifiers: Chronicity: chronic Back pain laterality: midline Sciatica presence: without sciatica Qualified Code(s): M54.5 - Low back pain; G89.29 - Other chronic pain; G89.29 - Other chronic pain Internal Medicine - H&P: HPI Chief complaint: Shortness of breath Admitted From: Emergency Dept Plans for Post Hospital Care: Home History of present illness: Mr. Qureshi is a 57 year old male with known PMH of HTN, Diastolic CHF, Morbid obesity, Chronic low back pain and narcotic dependent, pt who sent to our ER by his Satellite Tv Technician for his progressively worsening SOB, Orthopnea and ALEJANDRO. Pt stated he has been having severe SOB , ALEJANDRO from last one month, recently his PCP increased Lasix to 40mg BID, however his symptoms has not improved. Pt was seen by Cardiology Dr. Stevens who is planning on doing LHC for further eval for his worsening CHF, however pt is not able to life flat due to his severe respiratory distress. He denied any CP / Palpitations. He does c/o worsening swelling in both legs too. Past Med Surg Social Fam HX - Past Medical History Medical history: CHF, fibromyalgia, glaucoma, hypertension, other Psychiatric history: anxiety - Past Surgical History Surgical History: appendectomy, other - Social History Smoking Status: Former smoker Smokeless Tobacco Status: No Alcohol use: none Drug use: none - Family History Grandmother Hx Family Cardiac Disorders: Yes (CHF) Father Hx Family Cardiac Disorders: Yes ([place]) Internal Medicine - H&P: Meds Amlodipine Besylate/Benazepril [Lotrel 5-20 mg Capsule] 1 tab PO DAILY 12/09/17 [History] Furosemide [Lasix] 40 mg PO BID 12/09/17 [History] Gabapentin [Neurontin] 400 mg PO TID 12/09/17 [History] Metoprolol [Lopressor] 25 mg PO BID 12/09/17 [History] Nicotine Patch [Nicoderm] 14 mg TD DAILY 12/09/17 [History] Omeprazole [PriLOSEC] 20 mg PO DAILY 12/09/17 [History] Oxycodone HCl/Acetaminophen [Percocet 5-325 mg Tablet] 1 tab PO TID PRN [History] 3 Allergy/AdvReac Type Severity Reaction Status Date / Time Tetracyclines AdvReac See Verified 12/30/17 09:41 Comments All Systems PM: A 10-system review of systems was performed and is negative for pertinent findings except as documented above in the HPI. Review of systems: All the systems are reviewed everything is benign except the systems and symptoms I mentioned in the history of present illness - Constitutional Vitals: Temp Pulse Resp BP Pulse Ox 97.6 F 52 20 106/68 97 12/30/17 12:35 12/30/17 12:35 12/30/17 12:35 12/30/17 12:35 12/30/17 12:35 General appearance: Present: mild distress, A&O X 3, answers questions appropriately - Head Head exam: Present: atraumatic, normal inspection - Neck Neck exam general surgery: Present: supple - Respiratory Respiratory exam: Present: decreased breath sounds, rales (+), respiratory distress (mild). Absent: rhonchi, wheezes - Cardiovascular Cardiovascular exam: Present: RRR, +S1, +S2. Absent: tachycardia - GI/Abdominal GI/Abdominal exam: Present: normal bowel sounds, soft. Absent: rebound, rigid, tenderness - Extremities Exam Extremities exam: Present: pedal edema (2+). Absent: calf tenderness, tenderness - Back Exam Back exam: Absent: CVA tenderness (L), CVA tenderness (R) - Neurological Exam Neurological exam: Present: alert, oriented X3 - Psychiatric Psychiatric exam: Present: normal affect, normal mood - Skin Skin exam: Absent: rash Internal Med - H&P Results - Labs CBC & Chem 7: 12/30/17 10:09 12/30/17 10:09
[2017-12-30] MEDS: Gabapentin 400 MG CAPSULE PO SCH ×2 (15:25→21:01)
[2017-12-30] MEDS: Furosemide 40 MG/4 ML VIAL IVP SCH (19:51)
[2017-12-31] MEDS: Furosemide 40 MG/4 ML VIAL IVP SCH ×3 (03:41→17:10)
[2017-12-31] MEDS: *HR* OxyCODONE/APAP 5/325 TABLET PO PRN ×3 (03:41→21:56)
[2017-12-31 04:18] LABS: Basophils % 0.3 %; Eosinophils % 0.5 %; Hematocrit 41.5 % (37.5-50.1); Hemoglobin 14.4 g/dL (12.9-16.9); Immature Granulocytes % 0.2 % (0-4); Lymphocytes # 1.7 K/mcL (0.6-4.6); Lymphocytes % 29.8 %; Mean Corpuscular HGB Conc 34.7 g/dL (31.6-35.5); Mean Corpuscular Hemoglobin 35.2 pg (28.0-33.3); Mean Corpuscular Volume 101.5 fL (83.0-100.0); Mean Platelet Volume 10.1 fL (9.4-12.4); Monocytes # 0.4 K/mcL (0.0-1.3); Monocytes % 6.7 %; Neutrophils # 3.6 K/mcL (1.6-8.9); Platelet Count 206 K/mcL (140-400); Red Blood Count 4.09 M/mcL (4.19-5.50); Segmented Neutrophils % 62.5 %
[2017-12-31 04:35] LABS: BUN/Creatinine Ratio 18 (6-26); Blood Urea Nitrogen 16 mg/dL (6-20); Calcium 9.7 mg/dL (8.6-10.3); Carbon Dioxide 29 mEq/L (23-29); Chloride 102 mEq/L (98-107); Chol/HDL Ratio 4.3 (0-4.9); Cholesterol 171 mg/dL (< 200); Glucose 102 mg/dL (70-105); HDL Cholesterol 40 mg/dL (40-59); LDL Cholesterol,Calculated 112 mg/dL (0-99); Magnesium 2.2 mg/dL (1.6-2.6); Osmolality,Calculated 291 (280-300); Potassium 3.4 mEq/L (3.5-5.1); Sodium 140 mEq/L (136-145); Triglycerides 95 mg/dL (< 150); eGFR For African Americans > 60 (> 60); eGFR For Non-African Americans > 60 (> 60)
[2017-12-31] MEDS: *HR* Enoxaparin 40 MG/0.4 ML SYRINGE SQ SCH (06:16)
[2017-12-31] MEDS: Lisinopril 20 MG TABLET PO SCH (07:39)
[2017-12-31] MEDS: Gabapentin 400 MG CAPSULE PO SCH ×3 (07:40→20:28)
[2017-12-31] MEDS: Nicotine 14 MG PATCH.TD24 TD SCH (07:41)
--- NOTE | 2017-12-31 07:50 | Electrocardiograph Report ---
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
[2017-12-31] MEDS ORDERED: amLODIPine 5 MG TABLET PO SCH (09:00)
--- NOTE | 2017-12-31 10:03 | Cardiology Consult Note ---
<Gene Meier R - Last Filed: 12/31/17 10:18> Date of Encounter: 12/31/17 Time of Encounter: 09:58 Assessment and Plan (1) Dyspnea Current Visit: Yes Status: Acute Orthopnea and worsening ALEJANDRO started initially in September. Was hospitalized, diuresed, started on Lasix. Initially symptoms improved, but recently started to worsen again despite increase in PO Lasix as outpt. CXR negative. BNP 75 on presentation, 27 this AM. Chest CTA 09/2017 when symptoms began was negative for PE or acute findings. Admits to LE edema, also noted on exam. TTE 09/2017 EF preserved, mild diastolic dysfunction, no pulmonary hypertension. Dyspnea/orthopnea seem out of proportion to his labs/CXR and fluid volume status. Rechecking TTE. Diuresis ordered per primary team, IV Lasix 40mg TID. Strict I/Os, Na and fluid restriction, daily weights. Continue diuresis. Prior tobacco abuse. Consulted pulmonology for further recommendations as well. Dyspnea is concerning for anginal equivalent. Diffuse EKG changes in comparison to 09/2017. Recommend ischemic evaluation once pt is able to lay flat (stress test vs. LHC). Further recommendations to follow once seen by pulmonology and once repeat echo results. Qualifiers: Dyspnea type: orthopnea Qualified Code(s): R06.01 - Orthopnea (2) Diastolic dysfunction Current Visit: Yes Status: Acute As above, mild LVDD on echo 09/2017. Symptoms out of proportion to labs CXR, although pt does have moderate LE edema on exam. Recheck echo. Continue IV diuresis 40mg TID. Strict I/Os, Na and fluid restriction, daily weights. Pt denies excess fluid or salt intake. (3) HTN (hypertension) Current Visit: Yes Status: Acute Controlled on current meds. Qualifiers: Hypertension type: essential hypertension Qualified Code(s): I10 - Essential (primary) hypertension Discussion w patient/family: The assessment and plan as outlined above was discussed with the patient and/or family members who expressed understanding and agreement. All questions were answered. Thank you for involving us in the care of your patient. Please call with any questions. I will discuss all the above with Dr. Stokes and make changes as necessary. History of Present Illness Consult date: 12/31/17 Consult reason: dyspnea, orthopnea Chief complaint: dyspnea, orthopnea, LE edema History of present illness: Mr. Qureshi is a 57 year old male with PMH of HTN, Diastolic CHF, obesity, Chronic low back pain, prior tobacco abuse that was seen by Dr. Stevens in outpt cardiology office yesterday and sent to ED for his progressively worsening dyspnea, orthopnea and BLE edema. Pt states his symptoms initially started in September, was hospitalized and started on Lasix. Symptmos initially improved, but over recent days/weeks have worsened again. PCP increased Lasix to 40mg BID , however his symptoms has not improved. Pt denies chest pain. Denies prior ischemic eval. CXR negative. BNP was 75 on admission, 27 today. He had a chest CTA 09/2017 when symptoms started that was negative for PE. TTE 09/2017 EF 55%, mild diastolic dysfunction. Normal RV structure and function, no phtn, no significant valvular dysfunction. Pt reports orthopnea is also associated with coughing. He denies excessive fluid or Na intake. Troponins negative x 3. Cardiology consulted for further recommendations. Past Med Surg Social Fam HX - Past Medical History Medical history: CHF, fibromyalgia, glaucoma, hypertension, other Psychiatric history: anxiety - Past Surgical History Surgical History: appendectomy, other - Social History Smoking Status: Never smoker Smokeless Tobacco Status: No Alcohol use: none Drug use: none - Family History Grandmother Hx Family Cardiac Disorders: Yes (CHF) Father Hx Family Cardiac Disorders: Yes ([place]) Medications and Allergies Amlodipine Besylate/Benazepril [Lotrel 5-20 mg Capsule] 1 tab PO DAILY 12/09/17 [History] Furosemide [Lasix] 40 mg PO BID 12/09/17 [History] Gabapentin [Neurontin] 400 mg PO TID 12/09/17 [History] Metoprolol [Lopressor] 25 mg PO BID 12/09/17 [History] Nicotine Patch [Nicoderm] 14 mg TD DAILY 12/09/17 [History] Omeprazole [PriLOSEC] 20 mg PO DAILY 12/09/17 [History] Oxycodone HCl/Acetaminophen [Percocet 5-325 mg Tablet] 1 tab PO TID PRN [History] 3 Allergy/AdvReac Type Severity Reaction Status Date / Time Tetracyclines AdvReac See Verified 12/30/17 09:41 Comments All Systems Review: The remainder of the systems were reviewed and are negative - Cardiovascular Cardiovascular: as per HPI, dyspnea at rest, dyspnea on exertion, leg edema, orthopnea - Respiratory Respiratory: cough, dyspnea Physical Examination Vital Signs, Last 4 Hours Temp Pulse Resp BP Pulse Ox 12/31/17 06:53 99.8 F H 62 18 125/85 98 Vital Signs Temp Pulse Resp BP Pulse Ox 12/31/17 06:53 99.8 F H 62 18 125/85 98 12/31/17 04:39 98 F 72 16 136/89 97 12/31/17 00:26 98.1 F 62 17 115/73 97 12/30/17 20:07 98.1 F 62 17 129/75 97 12/30/17 15:25 98 12/30/17 14:56 97.9 F 56 20 126/84 98 12/30/17 12:35 97.6 F 52 20 106/68 97 12/30/17 11:22 56 16 124/83 96 Intake and Output 12/30/17 12/31/17 12/31/17 23:59 07:59 15:59 Intake Total 240 / 240 0 / 0 Output Total 725 / 725 Balance 240 / 240 -725 / -725 Intake: Oral 240 / 240 0 / 0 Output: Urine 725 / 725 Other: Meal Dinner Percent of Meal Consumed 90% # Voids 0 2 # Bowel Movements 0 Weight 123.491 kg Patient Weight 12/31/17 23:59 Weight 123.491 kg General: Conversant, No Apparent Distress HEENT: Atraumatic, Normocephaly, Mucus Membranes Moist Neck: No JVD, Normal carotid pulses Cardiac: Reg Rate and Rhythm, Normal S1 and S2, No Murmur Lungs: Normal Breath Sounds, No Wheeze, Rales, Rhonchi Neuro: Alert and responsive, No focal deficits noted Abdomen: Soft, Non-Tender Skin: No rashes noted on visualized skin Musculoskeletal: No Chest Wall Tenderness Extremities: No Clubbing, No Cyanosis, Other (mild-moderate LE edema noted) Results 12/31/17 03:19 12/31/17 03:19 Lab Results 12/30/17 12/30/17 12/31/17 16:14 22:24 03:19 WBC 5.8 Hgb 14.4 Hct 41.5 Plt Count 206 Sodium Potassium Chloride Carbon Dioxide BUN Creatinine Glucose Calcium Magnesium Troponin I < 0.03 < 0.03 B-Natriuretic Peptide 12/31/17 12/31/17 03:19 03:19 WBC Hgb Hct Plt Count Sodium 140 Potassium 3.4 L Chloride 102 Carbon Dioxide 29 BUN 16 Creatinine 0.89 Glucose 102 Calcium 9.7 Magnesium 2.2 Troponin I B-Natriuretic Peptide 27 Short CBC 12/31/17 12/30/17 Range/Units 03:19 10:09 WBC 5.8 6.0 (4.3-11.1) K/mcL Hgb 14.4 14.6 (12.9-16.9) g/dL Hct 41.5 42.7 (37.5-50.1) % Plt Count 206 203 (140-400) K/mcL Neutrophils # 3.6 4.2 (1.6-8.9) K/mcL BMP 12/31/17 12/30/17 Range/Units 03:19 10:09 Sodium 140 137 (136-145) mEq/L Potassium 3.4 L 4.0 (3.5-5.1) mEq/L Chloride 102 104 (98-107) mEq/L Carbon Dioxide 29 24 (23-29) mEq/L BUN 16 13 (6-20) mg/dL Creatinine 0.89 0.80 (0.70-1.30) mg/dL Glucose 102 117 H (70-105) mg/dL Calcium 9.7 10.0 (8.6-10.3) mg/dL Cardiac Enzymes 12/30/17 12/30/17 12/30/17 Range/Units 22:24 16:14 10:09 Troponin I < 0.03 < 0.03 < 0.03 (< 0.04) ng/mL Impressions Chest X-Ray 12/30/17 09:57 IMPRESSION: No acute cardiopulmonary process is identified radiographically. D/ / Carlos Cheatham MD / Carlos Cheatham MD Interpreting Provider: Carlos Cheatham MD Active Medications Acetaminophen (Tylenol) 650 mg PO Q6HR PRN PRN Reason: Mild Pain/Fever Stop: 07/01/18 11:22 Amlodipine Besylate (Norvasc) 5 mg PO DAILY [facility] PRN Reason: Protocol Stop: 07/03/18 09:01 Docusate Sodium (Colace) 100 mg PO BID PRN PRN Reason: Constipation Stop: 07/01/18 21:01 Enoxaparin Sodium (Lovenox) 40 mg SQ 0600 TOMMY PRN Reason: Protocol Stop: 07/02/18 06:01 Last Admin: 12/31/17 06:16 Dose: 40 mg Furosemide (Lasix) 40 mg IVP TIDDIURETIC [facility] Stop: 07/02/18 12:01 Gabapentin (Neurontin) 400 mg PO TID TOMMY Stop: 07/01/18 15:01 Last Admin: 12/31/17 07:40 Dose: 400 mg Lisinopril (Zestril) 20 mg PO DAILY [facility] PRN Reason: Protocol Stop: 07/02/18 09:01 Last Admin: 12/31/17 07:39 Dose: 20 mg Metoprolol Tartrate (Lopressor) 25 mg PO BID [facility] Stop: 07/01/18 21:01 Last Admin: 12/31/17 07:41 Dose: 25 mg Naloxone HCl (Narcan) 0.4 mg IVP Q2MIN PRN PRN Reason: SEE COMMENTS Stop: 07/01/18 11:22 Nicotine (Nicoderm) 14 mg TD DAILY [facility] PRN Reason: Protocol Stop: 07/01/18 11:31 Last Admin: 12/31/17 07:41 Dose: Not Given Omeprazole (Prilosec) 20 mg PO DAILY [facility] PRN Reason: Protocol Stop: 07/02/18 09:01 Last Admin: 12/31/17 07:40 Dose: 20 mg Ondansetron HCl (Zofran) 4 mg IVP Q6HR PRN PRN Reason: Nausea And Vomiting Stop: 07/01/18 11:22 Oxycodone/Acetaminophen (Percocet 5/325) 1 each PO Q6HR PRN PRN Reason: Moderate Pain Stop: 07/01/18 13:37 Last Admin: 12/31/17 03:41 Dose: 1 each Promethazine HCl (Phenergan) 12.5 mg IVP Q6HR PRN PRN Reason: Nausea And Vomiting Stop: 07/01/18 11:22 - Imaging and Cardiology Echo: report reviewed - EKG Interpretation EKG results cardiology: personally reviewed (sinus leonides, rate 54, diffuse changes), other (12 hr tele AVG HR 63, SR, no significant pauses or arrhythmias. ) Consult Discharge Plan - Plan Referrals: Nataliia Collins DO [Primary Care Provider] - <Mita Stokes - Last Filed: 12/31/17 11:51> Date of Encounter: 12/31/17 - Attending Attestation I examined this patient and my medical decision-making was reviewed with the JUKEBOX OPERATOR. I agree with the documented findings, disposition and treatment plan as described. Mr. Qureshi's symptoms of dyspnea appear multifactorial. With his at the bedside, history of symptoms were discussed in detail: He's had symptoms of SOB and cough at nighttime prompting him to sleep upright at an angle for the last several years. He's previously attributed it to sinusitis. He also takes prilosec in the morning which was just recently increased a month ago. Additionally, he is an ex-smoker and reports occasionally using his 's inhaler - which helps temporarily. He also complains of LE edema which he feels has been ongoing and worse starting in September. Unclear whether his diet is high in sodium. He has anxiety, previously on diazepam but taken off by PCP about a year ago. Upon admission, BNP normal, CXR unremarkable, troponin negative, no concerning ECG findings. Hgb normal. Recent CTA was negative for PE, also showing minimal biapical emphysematous changes. Echo demonstrates normal LVEF, normal RV function, no significant valve dysfunction of pulmonary hypertension. Suspect multiple components to patient's symptoms. Recommend continuing IV diuresis with lasix for LE edema until dry - will follow renal function. Recommend low sodium diet. No objective evidence for acute heart failure. Will have pulmonary evaluate the patient for evaluation of dyspnea and suspected COPD - emphysematous changes seen on CT. Recommend changing prilosec to the evening with suspicion for GERD complicating nighttime symptoms. May need ENT evaluation for sinusitis. Will defer anxiety management to primary team - witnessed patient having anxiety attack in the room during my evaluation. Also would consider an ischemic evaluation given patient's ongoing symptoms of dyspnea which he claims is occasionally happening during the day. When patient is able to lay flat, would recommend stress testing. Risk factors for CAD include male gender, history of nicotine abuse, HTN. Assessment and Plan Discussion w patient/family: The assessment and plan as outlined above was discussed with the patient and/or family members who expressed understanding and agreement. All questions were answered. Thank you for involving us in the care of your patient. Please call with any questions. History of Present Illness History of present illness: Mr. Qureshi is a 57 year old male All Systems Review: The remainder of the systems were reviewed and are negative Results 12/31/17 03:19 12/31/17 03:19 Lab Results 12/30/17 12/30/17 12/31/17 16:14 22:24 03:19 WBC 5.8 Hgb 14.4 Hct 41.5 Plt Count 206 Sodium Potassium Chloride Carbon Dioxide BUN Creatinine Glucose Calcium Magnesium Troponin I < 0.03 < 0.03 B-Natriuretic Peptide 12/31/17 12/31/17 03:19 03:19 WBC Hgb Hct Plt Count Sodium 140 Potassium 3.4 L Chloride 102 Carbon Dioxide 29 BUN 16 Creatinine 0.89 Glucose 102 Calcium 9.7 Magnesium 2.2 Troponin I B-Natriuretic Peptide 27
[2017-12-31] MEDS ORDERED: *HR* LORazepam 2 MG/ML VIAL IVP ONE (10:15)
--- NOTE | 2017-12-31 11:34 | Internal Med Progress Note ---
<Raya Rausch - Last Filed: 12/31/17 11:29> Date of Encounter: 12/31/17 Time of Encounter: 10:00 - Assessment and plan (1) Acute respiratory distress Current Visit: Yes Status: Acute Assessment and plan: Acute respiratory distress most likely secondary to acute diastolic CHF exacerbation. CXR reads No acute cardiopulmonary process. Oxygen saturation at 98% on 2L NC. Continue IV lasix. (2) Acute diastolic congestive heart failure Current Visit: Yes Status: Acute Assessment and plan: Diagnosed with CHF this past September. Home lasix is 40mg BID. Troponins negative. CXR negative. BNP 75 on presentation, 27 this AM. Chest CTA 09/2017 when symptoms began was negative for PE or acute findings. TTE 09/2017 shows EF preserved, mild diastolic dysfunction, no pulmonary hypertension. Dyspnea/ orthopnea seem out of proportion to his labs/CXR and fluid volume status. Cardiology consulted. Per documentation, cardiology will recheck TTE. Dyspnea is concerning for anginal equivalent. Diffuse EKG changes in comparison to 2016. Cardiology recommend ischemic evaluation once patient is able to lay flat (stress test vs. LHC). Will continue IV Lasix 40mg TID for diuresis. Strict I/Os , Na and fluid restriction, daily weights. (3) Anxiety Current Visit: Yes Status: Acute Assessment and plan: Patient appears anxious. Gave one dose of 1mg Ativan. Continue to monitor. (4) HTN (hypertension) Current Visit: Yes Status: Acute Assessment and plan: Continue home medications. Qualifiers: Hypertension type: essential hypertension Qualified Code(s): I10 - Essential (primary) hypertension - Time Spent With Patient Greater than 35 minutes - Subjective Interval history: The patient was seen and evaluated at bedside this morning. is at bedside. Patient is afebrile and appears in mild distress and anxious. Patient is having conversational dyspnea. Patient states that he is not feeling well. He admits he is very frustrated with his shortness of breath on exertion and when lying down flat. He states that he has been trying to lay flat so that he can be tested by cardiology, but he admits it is difficult. He admits he is SOB and having difficulty breathing at rest and requires the nasal canula oxygen. He denies any fever, headaches, vision changes, chest pain, palpitations, abdominal pain, nausea and vomiting, numbness or tingling, and any weaknesses. He admits that the swelling in his lower extremities are improving. He also admits he is anxious and would like one dose of valium. I recommended Ativan and told him I will discuss with my attending physician. He verbalize understanding and has no other concerns at this time. - Constitutional Vitals: Temp Pulse Resp BP Pulse Ox 99.8 F H 62 18 125/85 98 12/31/17 06:53 12/31/17 06:53 12/31/17 06:53 12/31/17 06:53 12/31/17 06:53 General appearance: Present: mild distress, A&O X 3, answers questions appropriately Exam: He is having conversational dyspnea. - Head Head exam: Present: atraumatic, normocephalic - Eye Eye exam: Present: EOMI, PERRL, conjuntiva pink, sclera anicteric - ENT ENT exam: Present: mucous membranes moist - Neck Neck exam general surgery: Present: supple, trachea midline. Absent: lymphadenopathy - Respiratory Respiratory exam: Present: accessory muscle use, decreased breath sounds, rales (Mild rales present in lower lung lira.), respiratory distress (Mild respiratory distress). Absent: rhonchi, wheezes - Cardiovascular Cardiovascular exam: Present: RRR, +S1, +S2. Absent: diastolic murmur, gallop, rubs, systolic murmur - GI/Abdominal GI/Abdominal exam: Present: normal bowel sounds, soft, no peritoneal signs. Absent: distended, tenderness - Extremities Exam Extremities exam: Present: pedal edema (Bilateral lower extremities swelling +1 pitting edema. ), warm, radial pulses palpable and symmetrical. Absent: calf tenderness, cyanotic - Neurological Exam Neurological exam: Present: CN II-XII intact, oriented X3, no focal deficits. Absent: pronater drift, facial droop, speech deficit - Psychiatric Psychiatric exam: Present: anxious - Skin Skin exam: Present: dry, intact Internal Medicine: Result - Labs CBC & Chem 7: 12/31/17 03:19 12/31/17 03:19 Labs: Short CBC 12/31/17 Range/Units 03:19 WBC 5.8 (4.3-11.1) K/mcL Hgb 14.4 (12.9-16.9) g/dL Hct 41.5 (37.5-50.1) % Plt Count 206 (140-400) K/mcL Neutrophils # 3.6 (1.6-8.9) K/mcL BMP 12/31/17 03:19 Sodium 140 Potassium 3.4 L Chloride 102 Carbon Dioxide 29 BUN 16 Creatinine 0.89 Glucose 102 Calcium 9.7 Cardiac Enzymes 12/30/17 12/30/17 Range/Units 16:14 22:24 Troponin I < 0.03 < 0.03 (< 0.04) ng/mL Consult Discharge Plan - Plan Referrals: Braxton-Nataliia Rai DO [Primary Care Provider] - <Heber Bland - Last Filed: 12/31/17 17:55> Date of Encounter: 12/31/17 - Assessment and plan (1) Acute diastolic congestive heart failure Current Visit: Yes Status: Acute (2) Anxiety Current Visit: Yes Status: Acute (3) HTN (hypertension) Current Visit: Yes Status: Acute Qualifiers: Hypertension type: essential hypertension Qualified Code(s): I10 - Essential (primary) hypertension (4) Low back pain Current Visit: Yes Status: Chronic Qualifiers: Chronicity: chronic Back pain laterality: midline Sciatica presence: without sciatica Qualified Code(s): M54.5 - Low back pain; G89.29 - Other chronic pain; G89.29 - Other chronic pain (5) Esophagitis Current Visit: No Status: Chronic - Constitutional Vitals: Temp Pulse Resp BP Pulse Ox 98.8 F 71 16 99/64 97 12/31/17 15:48 12/31/17 15:48 12/31/17 15:48 12/31/17 15:48 12/31/17 15:48 Internal Medicine: Result - Labs CBC & Chem 7: 12/31/17 03:19 12/31/17 03:19 Labs: Short CBC 12/31/17 Range/Units 03:19 WBC 5.8 (4.3-11.1) K/mcL Hgb 14.4 (12.9-16.9) g/dL Hct 41.5 (37.5-50.1) % Plt Count 206 (140-400) K/mcL Neutrophils # 3.6 (1.6-8.9) K/mcL BMP 12/31/17 03:19 Sodium 140 Potassium 3.4 L Chloride 102 Carbon Dioxide 29 BUN 16 Creatinine 0.89 Glucose 102 Calcium 9.7 Cardiac Enzymes 12/30/17 Range/Units 22:24 Troponin I < 0.03 (< 0.04) ng/mL - ABG Interpretation ABG results: ABG ABG pH 7.48 pH Units (7.32-7.45) H 12/31/17 15:42 ABG pCO2 37 mmHg (35-45) 12/31/17 15:42 ABG pO2 75 mmHg (85-104) L 12/31/17 15:42 ABG O2 Saturation 96 % (95-98) 12/31/17 15:42 - Attending Attestation I examined this patient and my medical decision-making was reviewed with the Resident Physician on 12/31/17. I agree with the documented findings, disposition and treatment plan as described except to the extent set forth below. Mr Qureshi is currently admitted with acute exac diastolic heart failure. He remains moderate to high risk due to potential for worsening clinical status. Mr Qureshi is feeling somewhat better after Ativan. He is confused due to all the doctors today. He is still unable to lie flat. No fever or chills No GI issues. Exam alert Comfortable Mucus membranes dry Heart distant Rales present Edema present I/P 1. Diastolic CHF 2. HTN Further diagnoses and plan as above.
--- NOTE | 2017-12-31 14:18 | Pulmonology Consult Note ---
Date of Encounter: 12/31/17 Time of Encounter: 14:00 Assessment and Plan (1) Acute respiratory failure Current Visit: Yes Status: Acute Patient is with hypoxic respiratory failure this admission more like CHF exacerbation playing a role .Patient most likely to have COPD but there is no evidence of current COPD exacerbation . To keep SPO2 around 92 % will liberate O2 Qualifiers: Respiratory failure complication: hypoxia Qualified Code(s): J96.01 - Acute respiratory failure with hypoxia (2) CHF (congestive heart failure) Current Visit: No Status: Acute The current presentation is more of diastolic CHF than COPD exacerbation. Qualifiers: Heart failure type: diastolic Heart failure chronicity: acute on chronic Qualified Code(s): I50.33 - Acute on chronic diastolic (congestive) heart failure (3) Suspected chronic obstructive pulmonary disease based on initial evaluation Current Visit: Yes Status: Chronic Patient has paraseptal emphysema in the old CT scan his chronic shortness of breadth and orthopnea can be contributed by .COPD . Will get PFT'S when he comes to our clinic in 6 weeks . Will send him home on Duoneb nebulizer and Symbicort BID . (4) DONNIE (obstructive sleep apnea) Current Visit: Yes Status: Chronic Patient has DONNIE , uncontrolled DONNIE will worsen diastolic heart failure . Will order PSG upon discharge so he gets it done before he sees us clinic . History of Present Illness Consult date: 12/31/17 Requesting physician: Gene Meier Reason for consult: dyspnea Chief complaint: Shortness of Breadth History of present illness: 57 year old male with past medical history significant for HTN , diastolic CHF , HLD , Morbid obesity , former smoker no formal diagnosis of COPD no PFTS on file but evidence of Paraseptal emphysema bilateral apical lobes comes with increased shortness of breadth for 1 month , pedal edema , Orthopnea , PND , denies any chest pain , palpitations , patent has on and off cough with sputum production , patient denies any recent change in color or amount of sputum production , denies any hemoptysis , denies any weight loss or any other constitutional symptoms . Pulmonary was consulted for evaluation of this shortness of breadth Past Med Surg Social Fam HX - Past Medical History Medical history: CHF, fibromyalgia, glaucoma, hypertension, other Psychiatric history: anxiety - Past Surgical History Surgical History: appendectomy, other - Social History Smoking Status: Never smoker Smokeless Tobacco Status: No Alcohol use: none Drug use: none - Family History Grandmother Hx Family Cardiac Disorders: Yes (CHF) Father Hx Family Cardiac Disorders: Yes ([place]) Medications and Allergies Amlodipine Besylate/Benazepril [Lotrel 5-20 mg Capsule] 1 tab PO DAILY 12/09/17 [History] Furosemide [Lasix] 40 mg PO BID 12/09/17 [History] Gabapentin [Neurontin] 400 mg PO TID 12/09/17 [History] Metoprolol [Lopressor] 25 mg PO BID 12/09/17 [History] Nicotine Patch [Nicoderm] 14 mg TD DAILY 12/09/17 [History] Omeprazole [PriLOSEC] 20 mg PO DAILY 12/09/17 [History] Oxycodone HCl/Acetaminophen [Percocet 5-325 mg Tablet] 1 tab PO TID PRN [History] 3 Allergy/AdvReac Type Severity Reaction Status Date / Time Tetracyclines AdvReac See Verified 12/30/17 09:41 Comments All Systems: The remainder of the systems were reviewed and are negative Physical Examination Auscultation: bilateral: diminished breath sounds (basilar diminished breadth sounds) Extremities: edema Gait: other (back pain ) Results - Laboratory Findings CBC and BMP: 12/31/17 03:19 12/31/17 03:19 Abnormal lab findings: Abnormal lab results RBC 4.09 M/mcL (4.19-5.50) L 12/31/17 03:19 MCV 101.5 fL (83.0-100.0) H 12/31/17 03:19 MCH 35.2 pg (28.0-33.3) H 12/31/17 03:19 Potassium 3.4 mEq/L (3.5-5.1) L 12/31/17 03:19 LDL Cholesterol, Calc 112 mg/dL (0-99) H 12/31/17 03:19 - Microbiology Findings Microbiology Findings: Microbiology, Last 48 Hours 12/30/17 11:41 Influenza Types A,B Antigen (DAMION) - Final Nasopharyngeal - Clinical Findings Intake & Output: Intake & Output 12/30/17 12/31/17 12/31/17 23:59 07:59 15:59 Intake Total 240 / 240 0 / 0 300 / 300 Output Total 725 / 725 Balance 240 / 240 -725 / -725 300 / 300 Weight 123.491 kg Consult Discharge Plan - Plan Referrals: Braxton-Nataliia Rai DO [Primary Care Provider] -
[2017-12-31] MEDS ORDERED: Ipratropium/Albuterol Neb 3 ML IH PRN (15:02)
[2017-12-31 15:50] LABS: ABG Base Excess 4 mEq/L (-2 to 3); ABG HCO3 27 mEq/L (21-27); ABG Oxygen Saturation 96 % (95-98); ABG PCO2 37 mmHg (35-45); ABG PH 7.48 pH Units (7.32-7.45); ABG PO2 75 mmHg (85-104); ABG TCO2 28 mEq/L (20-26)
[2017-12-31] MEDS: *HR* LORazepam 2 MG/ML VIAL IVP PRN (20:40)
[2018-01-01 03:55] LABS: Basophils % 0.4 %; Eosinophils % 0.3 %; Hematocrit 41.2 % (37.5-50.1); Hemoglobin 14.2 g/dL (12.9-16.9); Immature Granulocytes % 0.3 % (0-4); Lymphocytes % 29.7 %; Mean Corpuscular HGB Conc 34.5 g/dL (31.6-35.5); Mean Corpuscular Hemoglobin 34.5 pg (28.0-33.3); Mean Platelet Volume 9.8 fL (9.4-12.4); Monocytes # 0.5 K/mcL (0.0-1.3); Monocytes % 6.7 %; Neutrophils # 4.2 K/mcL (1.6-8.9); Platelet Count 204 K/mcL (140-400); Red Blood Count 4.12 M/mcL (4.19-5.50); Red Cell Distribution Width 12.9 % (11.5-14.5); Segmented Neutrophils % 62.6 %
[2018-01-01 04:14] LABS: BUN/Creatinine Ratio 23 (6-26); Blood Urea Nitrogen 24 mg/dL (6-20); Calcium 9.5 mg/dL (8.6-10.3); Carbon Dioxide 27 mEq/L (23-29); Chloride 101 mEq/L (98-107); Glucose 111 mg/dL (70-105); Osmolality,Calculated 289 (280-300); Potassium 3.3 mEq/L (3.5-5.1); Sodium 137 mEq/L (136-145); eGFR For African Americans > 60 (> 60); eGFR For Non-African Americans > 60 (> 60)
[2018-01-01] MEDS: *HR* OxyCODONE/APAP 5/325 TABLET PO PRN ×3 (06:16→19:31)
[2018-01-01] MEDS: *HR* Enoxaparin 40 MG/0.4 ML SYRINGE SQ SCH (06:17)
[2018-01-01] MEDS: Furosemide 40 MG/4 ML VIAL IVP SCH ×3 (07:44→19:31)
[2018-01-01] MEDS: *HR* LORazepam 2 MG/ML VIAL IVP PRN ×3 (07:44→22:21)
[2018-01-01] MEDS: Lisinopril 20 MG TABLET PO SCH (07:45)
[2018-01-01] MEDS: Gabapentin 400 MG CAPSULE PO SCH ×3 (07:45→22:21)
[2018-01-01] MEDS: Nicotine 14 MG PATCH.TD24 TD SCH (07:50)
[2018-01-01] MEDS ORDERED: amLODIPine 5 MG TABLET PO SCH (09:00)
--- NOTE | 2018-01-01 10:11 | Cardiology Progress Note ---
Date of Encounter: 01/01/18 Time of Encounter: 09:45 Assessment and Plan (1) Dyspnea Current Visit: Yes Status: Acute Dyspnea/orthopnea seem out of proportion to his labs/CXR and fluid volume status. Echocardiogram yesterday EF 55-60%, mild concentric LVH, mild DD, normal RV size /fxn, no significant valvular heart disease. Unable to estimate RVSP. Diuresis ordered per primary team, IV Lasix 40mg TID. Strict I/Os, Na and fluid restriction, daily weights. Continue diuresis. Prior tobacco abuse. Consulted pulmonology for further recommendations as well. Dyspnea is concerning for anginal equivalent. Diffuse EKG changes in comparison to 09/2017. Recommend ischemic evaluation once pt is able to lay flat- will plan for [facility] potentially Wednesday. Qualifiers: Dyspnea type: orthopnea Qualified Code(s): R06.01 - Orthopnea (2) Diastolic CHF, acute on chronic Current Visit: Yes Status: Acute Continue diuresis. (3) HTN (hypertension) Current Visit: Yes Status: Acute Controlled on current meds. Qualifiers: Hypertension type: essential hypertension Qualified Code(s): I10 - Essential (primary) hypertension Discussion w patient/family: The assessment and plan as outlined above was discussed with the patient and/or family members who expressed understanding and agreement. All questions were answered. Thank you for involving us in the care of your patient. Please call with any questions. Subjective Principal diagnosis: dyspnea Interval history: Dyspnea improved overnight, but still significantly dyspenic on exertion. No CP. Still orthopneic- cannot lie flat. LE edema improved as well with diuresis. Objective Vital Signs, Last 4 Hours Temp Pulse Resp BP Pulse Ox 01/01/18 07:18 97.9 F 64 16 125/77 96 General: Conversant, No Apparent Distress HEENT: Atraumatic, Normocephaly, Mucus Membranes Moist Neck: No JVD, Normal carotid pulses Cardiac: Reg Rate and Rhythm, Normal S1 and S2, No Murmur Lungs: Normal Breath Sounds, No Wheeze, Rales, Rhonchi Neuro: Alert and responsive, No focal deficits noted Abdomen: Soft, Non-Tender Skin: No rashes noted on visualized skin Musculoskeletal: No Chest Wall Tenderness Extremities: No Clubbing, No Cyanosis, Other (1+ b/l LE pitting edema mid calf) Results 01/01/18 03:33 01/01/18 03:33 Lab Results 01/01/18 01/01/18 03:33 03:33 WBC 6.7 Hgb 14.2 Hct 41.2 Plt Count 204 Sodium 137 Potassium 3.3 L Chloride 101 Carbon Dioxide 27 BUN 24 H Creatinine 1.06 Glucose 111 H Calcium 9.5 Consult Discharge Plan - Plan Referrals: Nataliia Collins DO [Primary Care Provider] -
--- NOTE | 2018-01-01 12:04 | Pulmonology Progress Note ---
Date of Encounter: 01/01/18 Time of Encounter: 11:45 Assessment and Plan (1) Acute respiratory failure Current Visit: Yes Status: Acute Patient presenting with bilateral pedal edema slow weight progressive shortness of breadth with some diastolic dysfunction in the ECHO will continue diuresis patient has COPD will need bronchodilators prn . Qualifiers: Respiratory failure complication: hypoxia Qualified Code(s): J96.01 - Acute respiratory failure with hypoxia (2) CHF (congestive heart failure) Current Visit: No Status: Acute This presentation more fit into CHF exacerbation rather than COPD exacerbation will continue diuresis . Cardiology following . Qualifiers: Heart failure type: diastolic Heart failure chronicity: acute on chronic Qualified Code(s): I50.33 - Acute on chronic diastolic (congestive) heart failure (3) Suspected chronic obstructive pulmonary disease based on initial evaluation Current Visit: Yes Status: Chronic Will continue Duoneb Q4 , to send home on Duoneb nebulizer and Symbicort . Will need 6 week appointment with Pulmonary will get outpatient PFT'S (4) DONNIE (obstructive sleep apnea) Current Visit: Yes Status: Chronic PSG as an outpatient ordered . Pharmacy Informatics Manager patient the lab will call to set up an appointment . 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 Subjective Principal diagnosis: dyspnea Interval history: Patient says he is feeling lot better today not much cough or sputum production his orthopnea little better overall feeling good according to patient. Objective PUL Vital signs: Last Vital Signs Temp 98.1 F 01/01/18 11:00 Pulse 65 01/01/18 11:00 Resp 16 01/01/18 11:00 BP 126/86 01/01/18 11:00 Pulse Ox 98 01/01/18 11:00 Auscultation: bilateral: diminished breath sounds (basilar diminished breadth sounds ), other (scattered crackles ) Results - Laboratory Findings CBC and BMP: 01/01/18 03:33 01/01/18 03:33 ABG ABG pH 7.48 pH Units (7.32-7.45) H 12/31/17 15:42 ABG pCO2 37 mmHg (35-45) 12/31/17 15:42 ABG pO2 75 mmHg (85-104) L 12/31/17 15:42 ABG O2 Saturation 96 % (95-98) 12/31/17 15:42 Abnormal lab findings: Abnormal lab results RBC 4.12 M/mcL (4.19-5.50) L 01/01/18 03:33 MCH 34.5 pg (28.0-33.3) H 01/01/18 03:33 ABG pH 7.48 pH Units (7.32-7.45) H 12/31/17 15:42 ABG pO2 75 mmHg (85-104) L 12/31/17 15:42 ABG Total CO2 28 mEq/L (20-26) H 12/31/17 15:42 ABG Base Excess 4 mEq/L (-2 to 3) H 12/31/17 15:42 Potassium 3.3 mEq/L (3.5-5.1) L 01/01/18 03:33 BUN 24 mg/dL (6-20) H 01/01/18 03:33 Glucose 111 mg/dL (70-105) H 01/01/18 03:33 LDL Cholesterol, Calc 112 mg/dL (0-99) H 12/31/17 03:19 - Microbiology Findings Microbiology Findings: Microbiology, Last 48 Hours 12/30/17 11:41 Influenza Types A,B Antigen (DAMION) - Final Nasopharyngeal - Clinical Findings Intake & Output: Intake & Output 12/31/17 01/01/18 01/01/18 23:59 07:59 15:59 Intake Total 360 / 360 Output Total 550 / 550 250 / 250 350 / 350 Balance -550 / -550 -250 / -250 10 10 Weight 121.563 kg Consult Discharge Plan - Plan Referrals: Braxton-Nataliia Rai DO [Primary Care Provider] -
--- NOTE | 2018-01-01 12:05 | Internal Med Progress Note ---
Date of Encounter: 01/01/18 Time of Encounter: 12:04 - Assessment and plan (1) Acute diastolic congestive heart failure Current Visit: Yes Status: Acute Assessment and plan: Slow improvement at this time ? anginal variant Hopefully will be able to have heart cath this Wednesday and patient educated on current diagnoses and work up - 40min (2) Anxiety Current Visit: Yes Status: Acute Assessment and plan: Responding well to PRN Ativan. (3) HTN (hypertension) Current Visit: Yes Status: Chronic Assessment and plan: Continue home medications. Qualifiers: Hypertension type: essential hypertension Qualified Code(s): I10 - Essential (primary) hypertension (4) Low back pain Current Visit: Yes Status: Chronic Assessment and plan: Continue home medications. Qualifiers: Chronicity: chronic Back pain laterality: midline Sciatica presence: without sciatica Qualified Code(s): M54.5 - Low back pain; G89.29 - Other chronic pain; G89.29 - Other chronic pain (5) Hypokalemia Current Visit: Yes Status: Acute Assessment and plan: Replace (6) COPD (chronic obstructive pulmonary disease) Current Visit: Yes Status: Chronic Assessment and plan: Plan per pulmonology Needs sleep study and further work up after discharge. Qualifiers: COPD type: emphysema Emphysema type: centrilobular Qualified Code(s): J43.2 - Centrilobular emphysema - Subjective Interval history: Mr Qureshi is currently admitted for acute exac CHF. He remains moderate to high risk due to potential for worsening clinical status. Mr Qureshi is still dyspneic when flat. He says the Ativan helps. There is discussion about heart cath on Wednesday. He is frustrated with delays in getting meds at night. No fever or chills. Some cough still. No GI issues. - Constitutional Vitals: Temp Pulse Resp BP Pulse Ox 98.1 F 65 16 126/86 98 01/01/18 11:00 01/01/18 11:00 01/01/18 11:00 01/01/18 11:00 01/01/18 11:00 General appearance: Present: A&O X 3, answers questions appropriately - Head Head exam: Present: normocephalic - Eye Eye exam: Present: EOMI, conjuntiva pink - ENT ENT exam: Present: mucous membranes dry - Respiratory Respiratory exam: Present: decreased breath sounds, CTAB. Absent: rales, rhonchi, wheezes - Cardiovascular Cardiovascular exam: Present: distant heart sounds, RRR. Absent: tachycardia - GI/Abdominal GI/Abdominal exam: Present: soft. Absent: tenderness - Extremities Exam Extremities exam: Present: warm Additional comments: Some edema still - Neurological Exam Neurological exam: Present: alert, oriented X3, no focal deficits - Skin Skin exam: Present: dry, warm. Absent: rash Internal Medicine: Result - Labs CBC & Chem 7: 01/01/18 03:33 01/01/18 03:33 Labs: Short CBC 01/01/18 Range/Units 03:33 WBC 6.7 (4.3-11.1) K/mcL Hgb 14.2 (12.9-16.9) g/dL Hct 41.2 (37.5-50.1) % Plt Count 204 (140-400) K/mcL Neutrophils # 4.2 (1.6-8.9) K/mcL BMP 01/01/18 03:33 Sodium 137 Potassium 3.3 L Chloride 101 Carbon Dioxide 27 BUN 24 H Creatinine 1.06 Glucose 111 H Calcium 9.5 - ABG Interpretation ABG results: ABG ABG pH 7.48 pH Units (7.32-7.45) H 12/31/17 15:42 ABG pCO2 37 mmHg (35-45) 12/31/17 15:42 ABG pO2 75 mmHg (85-104) L 12/31/17 15:42 ABG O2 Saturation 96 % (95-98) 12/31/17 15:42 Consult Discharge Plan - Plan Referrals: Braxton-Nataliia Rai DO [Primary Care Provider] -
[2018-01-02 06:12] LABS: Hematocrit 42.1 % (37.5-50.1); Hemoglobin 14.6 g/dL (12.9-16.9); Mean Corpuscular HGB Conc 34.7 g/dL (31.6-35.5); Mean Corpuscular Hemoglobin 35.4 pg (28.0-33.3); Mean Corpuscular Volume 101.9 fL (83.0-100.0); Mean Platelet Volume 10.1 fL (9.4-12.4); Platelet Count 235 K/mcL (140-400); Red Blood Count 4.13 M/mcL (4.19-5.50); Red Cell Distribution Width 12.9 % (11.5-14.5)
[2018-01-02 06:33] LABS: BUN/Creatinine Ratio 22 (6-26); Blood Urea Nitrogen 24 mg/dL (6-20); Calcium 9.7 mg/dL (8.6-10.3); Carbon Dioxide 27 mEq/L (23-29); Chloride 101 mEq/L (98-107); Glucose 114 mg/dL (70-105); Magnesium 2.1 mg/dL (1.6-2.6); Osmolality,Calculated 287 (280-300); Potassium 3.6 mEq/L (3.5-5.1); Sodium 136 mEq/L (136-145); eGFR For African Americans > 60 (> 60); eGFR For Non-African Americans > 60 (> 60)
[2018-01-02] MEDS: *HR* Enoxaparin 40 MG/0.4 ML SYRINGE SQ SCH (06:45)
[2018-01-02] MEDS: *HR* LORazepam 2 MG/ML VIAL IVP PRN ×3 (06:53→21:14)
[2018-01-02] MEDS: Furosemide 40 MG/4 ML VIAL IVP SCH ×3 (07:46→17:54)
[2018-01-02] MEDS: Gabapentin 400 MG CAPSULE PO SCH ×3 (07:46→20:21)
[2018-01-02] MEDS: Lisinopril 20 MG TABLET PO SCH (07:47)
[2018-01-02] MEDS: Nicotine 14 MG PATCH.TD24 TD SCH (07:47)
[2018-01-02] MEDS: *HR* OxyCODONE/APAP 5/325 TABLET PO PRN ×3 (07:47→20:21)
--- NOTE | 2018-01-02 09:15 | Cardiology Progress Note ---
Date of Encounter: 01/02/18 Time of Encounter: 08:30 Assessment and Plan (1) Dyspnea Current Visit: Yes Status: Acute Dyspnea/orthopnea seem out of proportion to his labs/CXR and fluid volume status. Suspect anxiety also playing role- symptoms improved with Ativan. Will evaluate for obstructive CAD as etiology of symptoms with [facility] tomorrow. Dyspnea may be anginal equivalent. Echocardiogram yesterday EF 55-60%, mild concentric LVH, mild DD, normal RV size /fxn, no significant valvular heart disease. Unable to estimate RVSP. Diuresis ordered per primary team, IV Lasix 40mg TID. Strict I/Os, Na and fluid restriction, daily weights. Continue diuresis. Prior tobacco abuse. Consulted pulmonology for further recommendations as well. Qualifiers: Dyspnea type: shortness of breath Qualified Code(s): R06.02 - Shortness of breath; R06.00 - Dyspnea, unspecified; R06.01 - Orthopnea (2) Diastolic CHF, acute on chronic Current Visit: Yes Status: Acute Continue diuresis. (3) HTN (hypertension) Current Visit: Yes Status: Chronic Controlled on current meds. Qualifiers: Hypertension type: essential hypertension Qualified Code(s): I10 - Essential (primary) hypertension Discussion w patient/family: The assessment and plan as outlined above was discussed with the patient and/or family members who expressed understanding and agreement. All questions were answered. Thank you for involving us in the care of your patient. Please call with any questions. Subjective Principal diagnosis: dyspnea Interval history: Dyspnea improved overnight. Still feels dyspneic when lying supine, but improved. States dyspnea improves with Ativan. No CP. LE edema improved as well with diuresis. Objective Vital Signs, Last 4 Hours Temp Pulse Resp BP Pulse Ox 01/02/18 08:18 98.5 F 85 14 115/72 96 General: Conversant, No Apparent Distress HEENT: Atraumatic, Normocephaly, Mucus Membranes Moist Neck: No JVD, Normal carotid pulses Cardiac: Reg Rate and Rhythm, Normal S1 and S2, No Murmur Lungs: Normal Breath Sounds, No Wheeze, Rales, Rhonchi Neuro: Alert and responsive, No focal deficits noted Abdomen: Soft, Non-Tender Skin: No rashes noted on visualized skin Musculoskeletal: No Chest Wall Tenderness Extremities: No Clubbing, No Cyanosis, Normal Pulses, Other (mild b/l LE edema) Results 01/02/18 05:35 01/02/18 05:35 Lab Results 01/02/18 01/02/18 05:35 05:35 WBC 5.6 Hgb 14.6 Hct 42.1 Plt Count 235 Sodium 136 Potassium 3.6 Chloride 101 Carbon Dioxide 27 BUN 24 H Creatinine 1.07 Glucose 114 H Calcium 9.7 Magnesium 2.1 Consult Discharge Plan - Plan Referrals: Braxton-Nataliia Rai DO [Primary Care Provider] -
--- NOTE | 2018-01-02 17:12 | Internal Med Progress Note ---
Date of Encounter: 01/02/18 Time of Encounter: 17:09 - Assessment and plan (1) Acute diastolic congestive heart failure Current Visit: Yes Status: Acute Assessment and plan: Slow improvement at this time ? anginal variant Continues to slowly improve Plan for [facility] tomorrow. (2) Anxiety Current Visit: Yes Status: Acute Assessment and plan: Responding well to PRN Ativan. (3) HTN (hypertension) Current Visit: Yes Status: Chronic Assessment and plan: Continue home medications. Qualifiers: Hypertension type: essential hypertension Qualified Code(s): I10 - Essential (primary) hypertension (4) Low back pain Current Visit: Yes Status: Chronic Assessment and plan: Continue home medications. Qualifiers: Chronicity: chronic Back pain laterality: midline Sciatica presence: without sciatica Qualified Code(s): M54.5 - Low back pain; G89.29 - Other chronic pain; G89.29 - Other chronic pain (5) Hypokalemia Current Visit: Yes Status: Resolved Assessment and plan: Resolved (6) COPD (chronic obstructive pulmonary disease) Current Visit: Yes Status: Chronic Assessment and plan: Plan per pulmonology Needs sleep study and further work up after discharge. Qualifiers: COPD type: emphysema Emphysema type: centrilobular Qualified Code(s): J43.2 - Centrilobular emphysema - Subjective Interval history: Mr Qureshi is currently admitted for acute exac CHF. He remains moderate to high risk due to potential for worsening clinical status. Mr Qureshi is less dyspneic today. He remains very dyspneic with exertion. No fever or chills. Still very anxious as well. - Constitutional Vitals: Temp Pulse Resp BP Pulse Ox 98.1 F 71 15 113/72 97 01/02/18 16:50 01/02/18 16:50 01/02/18 16:50 01/02/18 16:50 01/02/18 16:50 General appearance: Present: A&O X 3, answers questions appropriately - Head Head exam: Present: normocephalic - Eye Eye exam: Present: EOMI, conjuntiva pink - ENT ENT exam: Present: mucous membranes dry - Respiratory Respiratory exam: Present: CTAB. Absent: rales, rhonchi, wheezes - Cardiovascular Cardiovascular exam: Present: RRR. Absent: tachycardia - GI/Abdominal GI/Abdominal exam: Present: soft. Absent: tenderness - Extremities Exam Extremities exam: Present: warm. Absent: tenderness - Neurological Exam Neurological exam: Present: alert, oriented X3, no focal deficits - Psychiatric Psychiatric exam: Present: anxious - Skin Skin exam: Present: warm. Absent: rash Internal Medicine: Result - Labs CBC & Chem 7: 01/02/18 05:35 01/02/18 05:35 Labs: Short CBC 01/02/18 Range/Units 05:35 WBC 5.6 (4.3-11.1) K/mcL Hgb 14.6 (12.9-16.9) g/dL Hct 42.1 (37.5-50.1) % Plt Count 235 (140-400) K/mcL BMP 01/02/18 05:35 Sodium 136 Potassium 3.6 Chloride 101 Carbon Dioxide 27 BUN 24 H Creatinine 1.07 Glucose 114 H Calcium 9.7 - ABG Interpretation ABG results: ABG ABG pH 7.48 pH Units (7.32-7.45) H 12/31/17 15:42 ABG pCO2 37 mmHg (35-45) 12/31/17 15:42 ABG pO2 75 mmHg (85-104) L 12/31/17 15:42 ABG O2 Saturation 96 % (95-98) 12/31/17 15:42 Consult Discharge Plan - Plan Referrals: Braxton-Nataliia Rai DO [Primary Care Provider] -
[2018-01-02] MEDS ORDERED: hydrOXYzine pamoate 25 MG CAPSULE PO PRN (18:12)
[2018-01-03] MEDS: *HR* Enoxaparin 40 MG/0.4 ML SYRINGE SQ SCH (05:10)
[2018-01-03] MEDS: *HR* OxyCODONE/APAP 5/325 TABLET PO PRN ×2 (05:10→12:49)
[2018-01-03] MEDS: *HR* LORazepam 2 MG/ML VIAL IVP PRN (06:23)
[2018-01-03] MEDS: Lisinopril 20 MG TABLET PO SCH (08:31)
[2018-01-03] MEDS: Gabapentin 400 MG CAPSULE PO SCH ×2 (08:31→14:55)
[2018-01-03] MEDS: Nicotine 14 MG PATCH.TD24 TD SCH (08:32)
[2018-01-03] MEDS: Furosemide 40 MG/4 ML VIAL IVP SCH ×3 (08:36→14:56)
--- NOTE | 2018-01-03 09:22 | Event Note ---
Date of Encounter: 01/03/18 Time of Encounter: 09:00 - Cardiology Event Note Seen and examined. Patient reports has been laying flat all night without issues. Plan to proceed with C with possible PCI; patient is agreeable to proceed. See full note from Dr. Cat Lezama. Further recommendations to follow.
[2018-01-03 10:28] LABS: Prothrombin Time 11.1 Seconds (9.4-12.1)
[2018-01-03] MEDS ORDERED: Nitroglycerin 1,000 MCG/10 ML VIAL IV ONE (11:02)
[2018-01-03] MEDS ORDERED: Heparin 1,000 UNITS/500 mL 500 ML ONE (11:02)
[2018-01-03] MEDS ORDERED: 0.9 % Sodium Chloride 1,000 ML ONE ×2 (11:02→11:34)
[2018-01-03] MEDS ORDERED: *HR* Heparin 10,000 UNIT/10 ML VIAL ONE (11:02)
--- NOTE | 2018-01-03 11:32 | Pre-Sedation Evaluation ---
Pre-sedation evaluation - Pre-sedation checklist Date of procedure: 01/03/18 Procedure: Heart Cath Recent Vitals: Last Vital Signs Temp 98.1 F 01/03/18 07:43 Pulse 71 01/03/18 07:43 Resp 17 01/03/18 07:43 BP 113/78 01/03/18 07:43 Pulse Ox 96 01/03/18 07:43 H&P (including ROS) documented in medical record: Yes Previous reaction to sedatives/anesthetics: No Dietary Status: NPO after Midnight Airway Assessment: Patient can open mouth completely, TMJ function normal Dentition: dentures removed Possible difficult airway: No ASA Classification *see protocol: CLASS III-Severe systemic disease Plan of Care: Pt appropriate candidate for procedure/moderate/conscious sedation , Risks/benefits of procedure/sedation discussed w/ patient/family, If not NPO; Risk of intake outweiged by necessity to perform procedure
[2018-01-03] MEDS ORDERED: *HR* Midazolam HCl 2 MG/2 ML VIAL ONE ×2 (11:43→11:49)
[2018-01-03] MEDS ORDERED: ISOVUE-370 200 ML INFUS..BTL IV ONE (12:02)
[2018-01-03] MEDS ORDERED: 0.9 % Sodium Chloride 1,000 ML IVC SCH (12:15)
--- NOTE | 2018-01-03 12:27 | Invasive Diagnostic Lab Proc ---
Name: Addy Qureshi Date of Study: 01/03/2018 Date: 1960 Ht: 70.0in Medical Record#: [id number] Age: 57 Wt: 268.52lb Gender: Male BSA: 2.37 Order #: [id number] BMI: 38.53 Physicians Procedure Physician: Calixto Bañuelos DO Referring MD: Referring MD: Staff Name Position Time In Yojana Dasilva RN Monitor 11:32 AM Shruthi Henriquez RN Statistical Machine Mechanic 11:32 AM Willow Gottlieb RT (R) Scrub 11:32 AM Indications Indication Unstable Angina Procedures Performed Procedure L HRT ARTERY/VENTRICLE ANGIO Pre-Procedure Checklist Informed consent is complete signed and on chart. H&P is on chart. ID band is on and ID verified with patient. Patient NPO for procedure The procedure was described for the patient and questions were answered. Blood Pressure: 128/85 ECG is on chart. Rhythm: NSR Plan of Care Patient will tolerate the procedure without complications. Adequate level of comfort will be maintained. Hemodynamics will remain stable Patient will recover from procedure without complications. Respiratory function will be maintained. Cardiac rhythm will remain stable. Patient temperature will be maintained. Patient and/or family have verbalized understanding of the procedure. Patient Education Chief Complaint/Reason for Test: Cardiac Cath Developmental Category: Adult (18-64 years) Developmentally Appropriate for Age: Yes Learning Barriers: None Education Needs: Procedure Education Method: Verbal Information Taught: Cardiac Cath Educational Evaluation: Able to repeat information Intravenous Access Time IV Size Location DC'd Fluid/Drip Rate Units RN 20g 1 /" Patent On Arrival 0.9NaCl ml/hr Allergies Tetracycline Tetracyclines Vital Signs Time BP (mmHg) HR (bpm) O2 Sat. RR (bpm) LOC -4 / % 11:33 AM / % 5 = Fully awake and oriented or at pre-proc level 11:33 AM / % 4 = Oriented but drowsy 11:48 AM / % 4 = Oriented but drowsy 11:34 AM 138 / 80 71 96 % 18 11:39 AM 128 / 85 68 95 % 12 11:44 AM 122 / 79 68 97 % 14 11:48 AM 109 / 78 68 97 % 13 11:54 AM 123 / 79 71 95 % 18 11:59 AM 123 / 74 78 95 % 18 Procedural Medications Time Medication Dose Units Method Given By 11:33 AM Oxygen 2 L/min nasal cannula Shruthi Henriquez RN 11:41 AM Versed 2 mg Intravenous Shruthi Henriquez RN 11:50 AM Versed 1 mg Intravenous Shruthi Henriquez RN 11:53 AM Lidocaine 2% 10 ml Subcutaneous Calixto Bañuelos, DO 11:56 AM Versed 1 mg Intravenous Shruthi Henriquez RN ASA Classification: CLASS III- Severe systemic disease (i.e. prior AMI, diabetes with vascular complications, morbid obesity) Edna Score Preprocedure Postprocedure Activity 2- Moves 4 extremities sustained head lift Activity 2- Moves 4 extremities sustained head lift Circulation 2- SBP +/= 20 points of pre-anesthetic level Circulation 2- SBP +/= 20 points of pre-anesthetic level Consciousness 2- Awake and alert oriented x 3 Consciousness 2- Awake and alert oriented x 3 O2 Saturation 2- Able to maintain O2 satruation of 92% on room air O2 Saturation 2- Able to maintain O2 satruation of 92% on room air Respiratory 2- Able to deep breathe and cough well Respiratory 2- Able to deep breathe and cough well Total Score 10 Total Score 10 Contrast Agent: Isovue Diagnostic Contrast: 50 ml Total Contrast: 50 ml Fluoro Dose: 252 mGy Procedure Log Time Note Enter By 11:32 AM Pt 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 scoates 11:32 AM Procedure start 11:32 scoates 11:33 AM Time: 11:33 Oxygen on at 2 L/min per nasal cannula by Shruthi Henriquez RN scoates 11:33 AM CathStat 11:33 AM Vitals capture started with the following parameters, Patient=Adult, Interval=5 min, Initial Ygdgevhb=357 mmHg, Deflation Rate=5 mmHg, Cuff placed on Right Arm 11:33 AM Time: :33 Patient comfortable and pain free: Yes scoates 11:33 AM Time: :33LOC: 5 = Fully awake and oriented or at pre-proc level scoates 11:34 AM HR=71 bpm, TUPG=585/80 mmhg, SpO2=96.0 %, Resp=18 B/min, Comment=sr 11:38 AM Case Delayed no, inpatient scoates 11:39 AM HR=68 bpm, XZKO=414/85 mmhg, SpO2=95.0 %, Resp=12 B/min, Comment=sr 11:39 AM Hair removed from procedure site in procedure lab using clippers. Bilateral groin prepped with Chloraprep by Yojana Dasilva RN, then patient was draped. Skin intact. scoates 11:40 AM ASA Class CLASS III- Severe systemic disease (i.e. prior AMI, diabetes with vascular complications, morbid obesity) scoates 11:41 AM Time: : Versed 2 mg Intravenous Given by Shruthi Henriquez RN scoates 11:44 AM HR=68 bpm, SCCZ=686/79 mmhg, SpO2=97.0 %, Resp=14 B/min, Comment=sr 11:47 AM Pressure channel 2 zeroed. 11:48 AM Time: :33LOC: 4 = Oriented but drowsy scoates 11:48 AM Time: 11:33 Patient comfortable and pain free: Yes scoates 11:48 AM HR=68 bpm, GLQP=818/78 mmhg, SpO2=97.0 %, Resp=13 B/min, Comment=sr 11:50 AM Clinical Presentation: Unstable angina scoates 11:50 AM Time out performed according to hospital policy scoates 11:50 AM Time: 11:50 Versed 1 mg Intravenous Given by Shruthi Henriquez RN scoates 11:53 AM Time: 53 10 ml Lidocaine 2% to right groin Subcutaneous Given by Calixto Bañuelos DO scoates 11:53 AM Micro-Introducer Kit utilized for sheath placement scoates 11:53 AM Access obtained by percutaneous puncture. 6Fr 10cm Terumo [place] sheath placed in right Femoral artery. [id number] scoates 11:53 AM 5Fr FR 4 catheter inserted over the wire DNC scoates 11:53 AM wire removed scoates 11:53 AM Catheter selectively placed in left ventricle scoates 11:53 AM Bolus angiogram of left Ventricle complete: scoates 11:54 AM Recorded Pressure: LV, HR=69, Condition=Condition 1 (Left Ventricle) LV 83/-2/1 11:54 AM HR=71 bpm, CUAQ=464/79 mmhg, SpO2=95.0 %, Resp=18 B/min, Comment=sr 11:54 AM Recorded Pressure: LV, Ao, HR=70, Condition=Condition 1 (Left Ventricle) LV 95/-3/3, (Aorta) Ao 109/50/76 11:55 AM RCA angiography performed in multiple views. scoates 11:55 AM Catheter removed scoates 11:55 AM 5Fr FL 4 catheter inserted over the wire DNC scoates 11:57 AM Time: 11:56 Versed 1 mg Intravenous Given by Shruthi Henriquez RN scoates 11:57 AM Recorded Pressure: Ao, HR=70, Condition=Condition 1 (Aorta) Ao 108/64/84 11:57 AM LCA angiography performed in multiple views. scoates 11:58 AM Catheter removed scoates 11:58 AM Coronary Dominance: right scoates 11:59 AM Bolus angiogram of right Femoral complete: hand injected for a total of 5 mls scoates 11:59 AM HR=78 bpm, CYDO=419/74 mmhg, SpO2=95.0 %, Resp=18 B/min, Comment=sr 11:59 AM Procedure completed at 11:59 scoates 11:59 AM Did you address EBONI flow and Dominance? Yes scoates 12:00 PM Sign out completed: Radiation Dose 252 mGy Fluoro Time: 1.4 Isovue 370 - 200ml contrast 50 ml given by Calixto Bañuelos DO. Complications: NoneCardiac Rehab Consult needed: NoConfirmed administered medications: No scoates 12:00 PM Isovue 370 - 200ml,1 Bottle(s) used. scoates 12:00 PM Estimated Blood Loss: minimal scoates 12:00 PM Post ECG NSR scoates 12:00 PM Post Blood Pressure 123/74 scoates 12:00 PM 12:00 Post Pulses Bilateral DP & PT 2+ scoates 12:01 PM Information taught Cardiac Cath and Angioseal scoates 12:03 PM Arterial sheath pulled, Angio-seal closure device used and was Successful [id number] S/N. scoates 12:03 PM Time: 11:48 Patient comfortable and pain free: Yes scoates 12:03 PM Time: 11:48LOC: 4 = Oriented but drowsy scoates 12:05 PM Estimated Blood Loss: minimal scoates 12:05 PM Information taught Cardiac Cath, PCI, and Angioseal scoates 12:05 PM Education needs Procedure, Plan of Care, and Responsibilities of Patient in Care scoates 12:05 PM Learning barriers :None scoates 12:05 PM Education Methods Verbal scoates 12:06 PM Education evaluation Able to repeat information scoates 12:06 PM Site status No bleeding/hematoma - Rt Groin as reported by Willow Gottlieb RT (R) at 12:06 scoates 12:06 PM Opsite applied scoates 12:06 PM Report given to Shadia GARIBAY Pt taken to 2A Room #36. 12:06 scoates 12:12 PM Lesion found in Mid Circumflex. Pre Stenosis: 30 Pre EBONI Flow: scoates Complications Complication None Hemodynamics Pressures Site Systolic/A Wave Diastolic/V Wave Mean LV 83 -2 1 LV 95 -3 3 AO 109 50 76 AO 108 64 84 Post Procedure Information Blood Pressure: 123/74 mmHg Rhythm: NSR Post procedural instructions were given Closure Device Time Device Success/Fail 01/03/2018 12:14:00 PM Angio-seal Evolution Successful Site Checks Time Location Status Staff Sheath In? Note 12:06 PM Rt Groin No bleeding/hematoma Willow Gottlieb RT (R) Pulses Time Site Pre-Procedure Post-Procedure Note 01/03/2018 11:14:00 AM Bilateral radial 2+ 01/03/2018 11:14:00 AM Bilateral DP & PT 2+ 12:00:00 PM Bilateral DP & PT 2+ Updated by Yojana Aceves RN on 01/03/2018 12:15:38 PM electronically signed on 01/03/2018 12:19:05 PM with status of Final
--- NOTE | 2018-01-03 13:27 | Event Note ---
Date of Encounter: 01/03/18 Time of Encounter: 13:20 - Cardiology Event Note LHC: non-obstructive CAD. Defer further testing/evaluation to primary service/pulm on etiology of shortness of breath. Recommend outpatient sleep study. No further testing from inpatient, Cardiology will sign-off. Discussed with Dr. Stevens, recommend outpatient follow-up with PCP.
[2018-01-03 15:40] VITALS: BP 121/78
--- NOTE | 2018-01-03 15:54 | Discharge Summary ---
- NOTES TO OUTPATIENT PROVIDER Notes to Outpatient Provider: I have given him some Ativan to help with his anxiety at this time. I have also stopped the Norvasc portion of the Lotrel ( his BP has been good off it here) and continued the YESSENIA I. It may need to be increased in the future. His EF on heart cath was 45%. Orders not resulted at time of discharge: Pending orders 01/03/18 08:35 CL Cardiac Catheterization [CL] Routine Date of Encounter: 01/03/18 Time of Encounter: 15:52 - Discharge Diagnosis (1) CHF (congestive heart failure) Priority: Primary Status: Resolved Qualifiers: Heart failure type: combined systolic and diastolic Heart failure chronicity: acute on chronic Qualified Code(s): I50.43 - Acute on chronic combined systolic (congestive) and diastolic (congestive) heart failure (2) Anxiety Priority: Secondary Status: Acute (3) HTN (hypertension) Priority: Secondary Status: Chronic Qualifiers: Hypertension type: essential hypertension Qualified Code(s): I10 - Essential (primary) hypertension (4) Low back pain Priority: Secondary Status: Chronic Qualifiers: Chronicity: chronic Back pain laterality: midline Sciatica presence: without sciatica Qualified Code(s): M54.5 - Low back pain; G89.29 - Other chronic pain; G89.29 - Other chronic pain (5) Hypokalemia Priority: Secondary Status: Resolved (6) COPD (chronic obstructive pulmonary disease) Priority: Secondary Status: Chronic Qualifiers: COPD type: emphysema Emphysema type: centrilobular Qualified Code(s): J43.2 - Centrilobular emphysema (7) DONNIE (obstructive sleep apnea) Priority: Secondary Status: Suspected Hospital course: Mr. Qureshi is a 57 year old male with hx of CHF presented to ED with complaints of dyspnea. He was felt to be in exac CHF and admitted. Mr Qureshi was admitted to [facility] [place]. He was started on IV Lasix and home meds were continued but Norvasc. He was unable to lie flat and improved with diuresis. He was seen by cardiology and ultimately underwent LHC which was negative for significant CAD. He was also evaluated by pulmonary and will follow up outpatient for sleep study. He gradually improved with diuresis and did not need oxygen at the time of discharge. He has significant anxiety and responded well to Ativan. His respiratory status improved with this medication. Today he is s/p [facility]. He can ambulate without difficulty and no respiratory distress. He is afebrile and ready for discharge home. Discharge discussed with: patient, family, nurse - Time Spent with Patient Total time spent providing and/or coordinating discharge services: 45min - Discharge Medications Prescriptions: Lisinopril [Zestril] 20 mg PO DAILY #30 tablet LORazepam [Ativan] 0.5 mg PO TID PRN 7 Days #20 tablet PRN Reason: Anxiety Potassium Chloride 20 meq PO DAILY #30 tab.er.prt Home Medications: Furosemide [Lasix] 40 mg PO BID 12/09/17 [History] Gabapentin [Neurontin] 400 mg PO TID 12/09/17 [History] Metoprolol [Lopressor] 25 mg PO BID 12/09/17 [History] Nicotine Patch [Nicoderm] 14 mg TD DAILY 12/09/17 [History] Omeprazole [PriLOSEC] 20 mg PO DAILY 12/09/17 [History] Oxycodone HCl/Acetaminophen [Percocet 5-325 mg Tablet] 1 tab PO TID PRN [History] LORazepam [Ativan] 0.5 mg PO TID PRN 7 Days #20 tablet 01/03/18 [Rx] Lisinopril [Zestril] 20 mg PO DAILY #30 tablet 01/03/18 [Rx] Potassium Chloride 20 meq PO DAILY #30 tab.er.prt 01/03/18 [Rx] Allergies/Adverse Reactions: 3 Allergy/AdvReac Type Severity Reaction Status Date / Time Tetracyclines AdvReac See Verified 12/30/17 09:41 Comments Date of admission: 12/30/17 11:39 Primary care physician: Nataliia Limon Consults: 12/31/17 10:13 Consult to Pulmonology [CONS] Routine Consulting Provider: [facility] Reason for Consult: orthopnea Call Completed: Yes Discharging clinician: Heber Bland Anticipated date of discharge: 01/03/18 - Constitutional Vitals: Temp Pulse Resp BP Pulse Ox 98.1 F 78 20 121/78 96 01/03/18 07:43 01/03/18 15:40 01/03/18 15:40 01/03/18 15:40 01/03/18 15:40 General appearance: Present: A&O X 3, answers questions appropriately - Patient Status Disposition: Home, Self-Care Condition: Fair Functional capacity at discharge: independent ambulation Overall status at discharge: patient is progressing back to baseline - Ambulatory Orders Ambulatory Orders: PSG.Baseline (64158) Time Frame: 3 Weeks, Location: [facility] PSG.Baseline ([id number]) Time Frame: 01/21/18, Location: [facility] - Discharge Instructions Follow Up With: Nataliia Collins, [Primary Care Provider] - Additional Instructions: Follow up with Dr Riggs and arrange for sleep study. - Diet and Activity Activity: increase activity as tolerated Diet: low fat, low cholesterol, low salt diet, other (1.5 L fluid restriction)
== END 2018-01-03 17:24 | disposition home or self-care (01) | DRG 286 ==
LOC: EMEROO 09:38 → INTOOBSV 11:39 → 2ANU 11:39 → SUATTDRO 11:39 → 2ANU 11:58
PROVIDERS: ADMIT Family Medicine; ATTEND Internal Medicine

== ENCOUNTER 2019-11-24 13:44 | Observation (INO) ==
[2019-11-24] MEDS ORDERED: Aspirin 81 MG TAB.CHEW PO ONE (13:51)
[2019-11-24] MEDS ORDERED: Nitroglycerin 0.4 MG TAB.SUBL SL PRN (13:51)
[2019-11-24 14:16] LABS: Basophils % 0.2 %; Hematocrit 41.5 % (37.5-50.1); Hemoglobin 14.1 g/dL (12.9-16.9); Immature Granulocytes % 0.3 % (0-4); Lymphocytes % 17.2 %; Mean Corpuscular Hemoglobin 34.4 pg (28.0-33.3); Mean Corpuscular Volume 101.2 fL (83.0-100.0); Mean Platelet Volume 10.3 fL (9.4-12.4); Monocytes # 0.5 K/mcL (0.0-1.3); Monocytes % 8.9 %; Neutrophils # 4.2 K/mcL (1.6-8.9); Platelet Count 137 K/mcL (140-400); Red Cell Distribution Width 13.3 % (11.5-14.5); Segmented Neutrophils % 73.4 %; White Blood Count 5.8 K/mcL (4.3-11.1)
[2019-11-24 14:31] LABS: INR 1.1; Prothrombin Time 12.1 Seconds (9.4-12.1)
[2019-11-24 14:34] LABS: Activated Partial Thrombo Time 31.2 Seconds (26.0-36.0)
[2019-11-24 15:14] LABS: BUN/Creatinine Ratio 14 (6-26); Blood Urea Nitrogen 17 mg/dL (8-23); Calcium 8.5 mg/dL (8.6-10.3); Carbon Dioxide 24 mEq/L (23-29); Chloride 95 mEq/L (98-107); Glucose 113 mg/dL (70-105); Osmolality,Calculated 276 (280-300); Potassium 3.2 mEq/L (3.5-5.1); Sodium 132 mEq/L (136-145); Troponin I < 0.03 ng/mL (< 0.04); eGFR For African Americans > 60 (> 60); eGFR For Non-African Americans 59 (> 60)
[2019-11-24] MEDS ORDERED: 0.9 % Sodium Chloride 1,000 ML IVC ONE (15:25)
[2019-11-24] MEDS ORDERED: Ondansetron 4 MG/2 ML VIAL IVP PRN (15:52)
[2019-11-24] MEDS ORDERED: Naloxone 0.4 MG/ML INJ IVP PRN (15:52)
[2019-11-24] MEDS ORDERED: 0.9 % Sodium Chloride 1,000 ML IVC SCH (16:00)
[2019-11-24] MEDS ORDERED: Fluticasone Propionate Nasal 50 MCG/SPRAY BOTTLE NS PRN (17:53)
[2019-11-24] MEDS ORDERED: MethylPREDNISolone 40 MG/ML VIAL IVP ONE (18:31)
[2019-11-24] MEDS: Ipratropium/Albuterol Neb 3 ML IH SCH ×3 (19:39→23:59)
[2019-11-24] MEDS: traZODone 50 MG TABLET PO SCH (19:50)
[2019-11-24] MEDS: Potassium Chloride Elixir 20 MEQ/15 ML UDC PO SCH ×2 (19:51→23:46)
[2019-11-24] MEDS: carvediloL 6.25 MG TABLET PO SCH (19:52)
[2019-11-24] MEDS: *HR* Heparin 5,000 UNIT/ML VIAL SQ SCH (19:52)
[2019-11-24] MEDS: Budesonide/Formoterol 160/4.5 1 PUFF INH IH SCH (20:09)
[2019-11-24] MEDS: Azelastine 0.1% Nasal Spray 30 ML BOTTLE NS SCH (23:36)
[2019-11-24] MEDS ORDERED: Potassium Chloride Elixir 20 MEQ/15 ML UDC PO SCH (23:45)
[2019-11-24] MEDS: MethylPREDNISolone 40 MG/ML VIAL IVP SCH (23:46)
[2019-11-25] MEDS: Ipratropium/Albuterol Neb 3 ML IH SCH ×5 (04:39→20:57)
[2019-11-25 05:16] LABS: Adenovirus Not Detected (Not Detect); Coronavirus 229E Not Detected (Not Detect); Coronavirus HKU1 Not Detected (Not Detect); Coronavirus NL63 Not Detected (Not Detect); Coronavirus OC43 Not Detected (Not Detect); Human Metapneumovirus Not Detected (Not Detect); Human Rhinovirus/Enterovirus Not Detected (Not Detect)
[2019-11-25 05:17] LABS: Bordetella Pertussis Not Detected (Not Detect); Chlamydophila pneumoniae Not Detected (Not Detect); Influenza B Not Detected (Not Detect); Mycoplasma pneumoniae Not Detected (Not Detect); Parainfluenza Virus 1 Not Detected (Not Detect); Parainfluenza Virus 2 Not Detected (Not Detect); Parainfluenza Virus 3 Not Detected (Not Detect); Parainfluenza Virus 4 Not Detected (Not Detect); Respiratory Syncytial Virus Not Detected (Not Detect)
[2019-11-25 05:21] LABS: Influenza A Subtype 2009 H1 DETECTED (Not Detect)
[2019-11-25] MEDS: *HR* Heparin 5,000 UNIT/ML VIAL SQ SCH ×2 (06:07→16:45)
[2019-11-25 06:18] LABS: Basophils % 0.3 %; Hematocrit 44.1 % (37.5-50.1); Hemoglobin 14.9 g/dL (12.9-16.9); Immature Granulocytes % 0.5 % (0-4); Lymphocytes # 0.8 K/mcL (0.6-4.6); Lymphocytes % 19.2 %; Mean Corpuscular HGB Conc 33.8 g/dL (31.6-35.5); Mean Corpuscular Hemoglobin 34.3 pg (28.0-33.3); Mean Corpuscular Volume 101.4 fL (83.0-100.0); Mean Platelet Volume 10.2 fL (9.4-12.4); Monocytes # 0.2 K/mcL (0.0-1.3); Monocytes % 4.8 %; Platelet Count 123 K/mcL (140-400); Red Blood Count 4.35 M/mcL (4.19-5.50); Red Cell Distribution Width 13.3 % (11.5-14.5); Segmented Neutrophils % 75.2 %
[2019-11-25 06:41] LABS: BUN/Creatinine Ratio 15 (6-26); Blood Urea Nitrogen 16 mg/dL (8-23); Calcium 8.4 mg/dL (8.6-10.3); Carbon Dioxide 23 mEq/L (23-29); Chloride 101 mEq/L (98-107); Glucose 194 mg/dL (70-105); Magnesium 2.1 mg/dL (1.6-2.6); Osmolality,Calculated 290 (280-300); Phosphorous 2.3 mg/dL (2.7-4.5); Potassium 4.1 mEq/L (3.5-5.1); Sodium 137 mEq/L (136-145); eGFR For African Americans > 60 (> 60); eGFR For Non-African Americans > 60 (> 60)
[2019-11-25] MEDS: Budesonide/Formoterol 160/4.5 1 PUFF INH IH SCH ×2 (07:58→20:57)
[2019-11-25] MEDS ORDERED: predniSONE 20 MG TABLET PO SCH (09:00)
[2019-11-25] MEDS ORDERED: Albuterol 2.5 MG/3 ML NEBULIZER IH PRN (09:07)
[2019-11-25] MEDS ORDERED: Azithromycin 500 MG in 0.9 % Sodium Chloride 250 ML IVPB ONE (09:07)
[2019-11-25] MEDS: Aspirin Enteric Coated 81 MG Tablet PO SCH (09:20)
[2019-11-25] MEDS: MethylPREDNISolone 40 MG/ML VIAL IVP SCH ×3 (09:21→23:46)
[2019-11-25] MEDS: carvediloL 6.25 MG TABLET PO SCH ×2 (09:21→21:16)
[2019-11-25] MEDS: Azelastine 0.1% Nasal Spray 30 ML BOTTLE NS SCH ×2 (10:48→21:16)
[2019-11-25] MEDS: traZODone 50 MG TABLET PO SCH (21:16)
[2019-11-26 02:31] LABS: Hematocrit 41.8 % (37.5-50.1); Hemoglobin 14.6 g/dL (12.9-16.9); Mean Corpuscular HGB Conc 34.9 g/dL (31.6-35.5); Mean Corpuscular Hemoglobin 34.2 pg (28.0-33.3); Mean Corpuscular Volume 97.9 fL (83.0-100.0); Mean Platelet Volume 10.8 fL (9.4-12.4); Platelet Count 136 K/mcL (140-400); Red Blood Count 4.27 M/mcL (4.19-5.50); Red Cell Distribution Width 13.2 % (11.5-14.5)
[2019-11-26 02:32] LABS: White Blood Count 6.2 K/mcL (4.3-11.1)
[2019-11-26 02:50] LABS: BUN/Creatinine Ratio 18 (6-26); Blood Urea Nitrogen 17 mg/dL (8-23); Calcium 8.6 mg/dL (8.6-10.3); Carbon Dioxide 21 mEq/L (23-29); Chloride 104 mEq/L (98-107); Glucose 182 mg/dL (70-105); Osmolality,Calculated 288 (280-300); Potassium 3.6 mEq/L (3.5-5.1); Sodium 136 mEq/L (136-145); eGFR For African Americans > 60 (> 60); eGFR For Non-African Americans > 60 (> 60)
[2019-11-26] MEDS: Ipratropium/Albuterol Neb 3 ML IH SCH ×7 (04:08→23:50)
[2019-11-26] MEDS: *HR* Heparin 5,000 UNIT/ML VIAL SQ SCH ×2 (05:22→17:03)
[2019-11-26] MEDS: Budesonide/Formoterol 160/4.5 1 PUFF INH IH SCH ×2 (07:56→20:08)
[2019-11-26] MEDS: carvediloL 6.25 MG TABLET PO SCH ×2 (08:56→22:25)
[2019-11-26] MEDS: Azithromycin 250 MG TABLET PO SCH (08:56)
[2019-11-26] MEDS: Aspirin Enteric Coated 81 MG Tablet PO SCH (08:57)
[2019-11-26] MEDS: MethylPREDNISolone 40 MG/ML VIAL IVP SCH (08:57)
[2019-11-26] MEDS: Azelastine 0.1% Nasal Spray 30 ML BOTTLE NS SCH ×2 (09:00→22:26)
[2019-11-26] MEDS: traZODone 50 MG TABLET PO SCH (22:25)
[2019-11-27] MEDS: Ipratropium/Albuterol Neb 3 ML IH SCH ×2 (04:45→07:26)
[2019-11-27 04:52] LABS: Hematocrit 42.5 % (37.5-50.1); Hemoglobin 14.1 g/dL (12.9-16.9); Immature Platelets 4.2 % (1.1-6.1); Mean Corpuscular HGB Conc 33.2 g/dL (31.6-35.5); Mean Corpuscular Hemoglobin 34.1 pg (28.0-33.3); Mean Corpuscular Volume 102.7 fL (83.0-100.0); Red Blood Count 4.14 M/mcL (4.19-5.50); Red Cell Distribution Width 13.8 % (11.5-14.5); White Blood Count 6.4 K/mcL (4.3-11.1)
[2019-11-27] MEDS: *HR* Heparin 5,000 UNIT/ML VIAL SQ SCH (05:33)
[2019-11-27 07:04] VITALS: BP 127/81
[2019-11-27] MEDS: Budesonide/Formoterol 160/4.5 1 PUFF INH IH SCH (07:26)
[2019-11-27] MEDS: Aspirin Enteric Coated 81 MG Tablet PO SCH (08:00)
[2019-11-27] MEDS: Azithromycin 250 MG TABLET PO SCH (08:01)
[2019-11-27] MEDS: carvediloL 6.25 MG TABLET PO SCH (08:01)
[2019-11-27] MEDS: Azelastine 0.1% Nasal Spray 30 ML BOTTLE NS SCH (08:03)
[2019-11-27 08:49] LABS: Estimated Average Glucose 140 mg/dl
[2019-11-27] MEDS ORDERED: predniSONE 20 MG TABLET PO SCH (09:00)
== END 2019-11-27 11:27 | disposition home or self-care (01) ==
LOC: EMEROOARM 13:44 → 3BNU 13:44 → SUATTDRO 15:57 → 3BNU 18:16
PROVIDERS: ADMIT Student in an Organized Health Care Education/Training Program; ATTEND Student in an Organized Health Care Education/Training Program